=== PATIENT | female | born 1975 | race Caucasian/White ===

== ENCOUNTER → 2017-07-04 12:08 | Outpatient (CLI) | payer MEDICAID ==
[2011-12-05 08:38] VITALS: BMI 40.0
== END | disposition home or self-care (01) ==
LOC: D.CT 12:08
DX: R10.31 Right lower quadrant pain (principal)

== ENCOUNTER 2017-07-26 01:32 | Emergency (ER) | payer MEDICAID ==
[2011-12-05 08:38] VITALS: BMI 40.0
== END 2017-07-26 02:39 | disposition home or self-care (01) ==
LOC: D.ER 01:32
DX: L02.416 Cutaneous abscess of left lower limb (principal); F17.200 Nicotine dependence, unspecified, uncomplicated

== ENCOUNTER 2017-09-09 23:12 | Emergency (ER) | payer MEDICAID ==
[2011-12-05 08:38] VITALS: BMI 40.0
== END 2017-09-10 01:20 | disposition home or self-care (01) ==
LOC: D.ER 23:12
DX: M54.5 Low back pain (principal); W10.9XXA Fall (on) (from) unspecified stairs and steps, initial encounter; Y93.89 Activity, other specified; Y92.019 Unspecified place in single-family (private) house as the place of occurrence of the external cause

== ENCOUNTER 2017-11-13 22:22 | Emergency (ER) | payer MEDICAID ==
[~2017-11-13] VITALS: Ht 165.1 cm; Wt 90.9 kg
[2017-11-13 22:29] VITALS: Ht 165.1 cm; Wt 90.9 kg
[2017-11-13] MEDS ORDERED: LEVEMIR100 U/M1 SC (22:30)
[2017-11-13] MEDS ORDERED: KLONOPIN1 MG PO (22:30)
[2017-11-13 22:47] LABS: APPEARANCE CLEAR (CLEAR); COLOR YELLOW (YELLOW); NITRITE NEGATIVE (NEGATIVE)
[2017-11-13 22:48] LABS: BILIRUBIN NEGATIVE (NEGATIVE); GLUCOSE 1000 mg/dL (NEGATIVE); KETONE NEGATIVE (NEGATIVE); PROTEIN NEGATIVE (NEGATIVE); UROBILINOGEN NORMAL (NORMAL)
[2017-11-13 23:12] LABS: BASOPHILS 0.4 % (0-2); EOSINOPHILS 2.7 % (0-7); HEMATOCRIT 40.3 % (36.0-48.0); HEMOGLOBIN 13.7 g/dL (12-16); IMMATURE GRANULOCYTES 0.2 % (0-5); MCH 28.7 pg (26.0-34.0); MCV 84.3 fL (80.0-100.0); MEAN PLATELET VOLUME 10.6 fL (7.4-10.4); MONOCYTES 5.6 % (2-11); NEUTROPHILS 58.1 % (40-80); PLATELET COUNT 277 10x3/uL (130-400); RBC 4.78 10x6/uL (4.00-5.40); RDW 14.1 % (11.5-14.5); WBC 10.6 10x3/uL (4.8-10.8)
[2017-11-13 23:34] LABS: ALBUMIN 3.1 g/dL (3.4-5.0); ALKALINE PHOSPHATASE 84 U/L (46-116); ALT (SGPT) 13 U/L (10-68); AMYLASE - SERUM 57 U/L (25-115); BILIRUBIN - TOTAL 0.11 mg/dL (0.2-1.3); CALC OSMOLALITY 273 mosm/kg (275-300); CALCIUM 8.5 mg/dL (8.5-10.1); CARBON DIOXIDE 29.6 mmol/L (21.0-32.0); CHLORIDE - SERUM 101 mmol/L (98-107); CREATININE - SERUM 0.8 mg/dL (0.6-1.3); LIPASE 173 U/L (73-393); POTASSIUM - SERUM 3.9 mmol/L (3.5-5.1); SODIUM 134 mmol/L (136-145); UREA NITROGEN 8 mg/dL (7-18); eGFR NON AFRICAN AMERICAN 84 mL/min (90-120)
[2017-11-13 23:38] LABS: GLUCOSE 239 mg/dL (74-106)
[2017-11-14] MEDS ORDERED: NORCO 7.5/325 T1 TA1 PO (00:29)
[2017-11-14 00:55] VITALS: BP 150/97
== END 2017-11-14 00:55 | disposition home or self-care (01) ==
LOC: D.ER 22:22
PROVIDERS: Emergency Medicine
DX: R10.9 Unspecified abdominal pain (principal); E10.9 Type 1 diabetes mellitus without complications; Z79.4 Long term (current) use of insulin; F17.200 Nicotine dependence, unspecified, uncomplicated

== ENCOUNTER 2017-11-27 07:30 | Day surgery (SDC) | payer MEDICAID ==
[~2017-11-27] VITALS: Ht 165.1 cm; Wt 114.3 kg
--- NOTE | ~2017-11-27 | OP ---
PATIENT NAME: PARK ZAMBRANO MEDICAL RECORD: [id number] :77 [facility] DATE: SURGEON: JYOTHI DONG MD DATE OF OPERATION: 11/27/2017 PREOPERATIVE DIAGNOSIS: Symptomatic right inguinal hernia. POSTOPERATIVE DIAGNOSIS: Symptomatic indirect right inguinal hernia. PROCEDURE: Open right indirect inguinal hernia repair with bilayered preperitoneal polypropylene mesh. SURGEON: Jyothi Dong MD DRUM PULLER: NATE Buckley BLOOD LOSS: Minimal. DRAINS: None. COMPLICATIONS: None. The risks, possible complications and alternatives to procedure were explained to the patient. She elects to proceed. The discussion was specifically included, but was not limited to, bleeding requiring emergency reoperation, infection, chronic pain as well as reherniation. OPERATIVE COURSE: The patient was conveyed to the operating room electively on 11/27/2017. General anesthesia was induced by the anesthesia staff. The abdomen and genitals were sterilely prepped and draped. A transverse incision was accomplished in the right groin. Sharp dissection was carried down through skin and subcutaneous tissue as well as Robert's fascia. The external oblique aponeurosis was then incised along the direction of its fibers. I bluntly dissected down through the internal oblique and transversus abdominis muscle layers. A preperitoneal pocket was fashioned bluntly. The round ligament was cauterized and divided. I cut 2 ovals out of a polypropylene mesh. The 2 ovals were sutured one on top, the other with a running #1 Surgidac. The mesh was placed in the preperitoneal space. Once I was satisfied with placement of the mesh, I allowed the muscle layers to come together over the mesh. The internal oblique and transversus abdominis muscle layers were then sutured together with multiple interrupted horizontal mattress 0 Surgidac incorporating a portion of the mesh in the sutures. The external oblique aponeurosis was then closed with running #1 Vicryls. Robert's fascia was approximated with interrupted 3-0 Vicryls. The subcutaneous tissues were approximated with interrupted 3-0 Vicryls. The skin was approximated with a running intracuticular 3-0 Vicryl. Benzoin and Steri-Strips were applied. The patient was then extubated and conveyed to the post-anesthesia care unit where she was in stable condition. She will be dismissed home on a narcotic analgesic. I will see her in the office in 2-3 weeks. TRANSINT:[id number] Voice Confirmation ID: [id number] DOCUMENT ID: [id number] OPERATIVE REPORT [id number] PARK ZAMBRANO ROBERT MD at 1004 CC: [id number] DICTATION DATE: 12/28/17 1017 PROFESSIONAL HOUSING CONSULTANT: 12/28/17 1328 [facility] 11/27/[address] [address]
[~2017-11-27 07:30] MED LIST: KLONOPIN1 MG PO; LEVEMIR100 U/M1 SC; NORCO 7.5/325 T1 TA1 PO
[2017-11-27 07:57] LABS: HEMATOCRIT 43.3 % (36.0-48.0); HEMOGLOBIN 14.9 g/dL (12-16); MCHC 34.4 g/dL (31.0-37.0); MCV 84.2 fL (80.0-100.0); MEAN PLATELET VOLUME 10.6 fL (7.4-10.4); RBC 5.14 10x6/uL (4.00-5.40); RDW 14.1 % (11.5-14.5); WBC 13.8 10x3/uL (4.8-10.8)
[2017-11-27 07:59] LABS: CALC OSMOLALITY 276 mosm/kg (275-300); CALCIUM 8.8 mg/dL (8.5-10.1); CARBON DIOXIDE 27.6 mmol/L (21.0-32.0); CHLORIDE - SERUM 102 mmol/L (98-107); CREATININE - SERUM 0.7 mg/dL (0.6-1.3); GLUCOSE 258 mg/dL (74-106); POTASSIUM - SERUM 4.2 mmol/L (3.5-5.1); SODIUM 135 mmol/L (136-145); UREA NITROGEN 8 mg/dL (7-18); eGFR NON AFRICAN AMERICAN > 90 mL/min (90-120)
[2017-11-27 09:02] VITALS: BP 111/68; Ht 165.1 cm; Wt 114.3 kg
== END 2017-11-27 16:10 | disposition home or self-care (01) ==
LOC: D.OPS 07:30 → D.PAN 09:00 → D.OPS 10:30
PROVIDERS: Anesthesiology
DX: K40.90 Unilateral inguinal hernia, without obstruction or gangrene, not specified as recurrent (principal); Z01.812 Encounter for preprocedural laboratory examination

== ENCOUNTER 2017-12-02 09:59 | Emergency (ER) | payer MEDICAID ==
[~2017-12-02] VITALS: Ht 165.1 cm; Wt 90.9 kg
[2017-12-02 10:23] VITALS: Ht 165.1 cm; Wt 90.9 kg
[2017-12-02] MEDS ORDERED: NORCO 7.5/325 T1 TA1 PO (10:24)
[2017-12-02 10:53] LABS: BASOPHILS 0.3 % (0-2); EOSINOPHILS 3.3 % (0-7); HEMATOCRIT 40.2 % (36.0-48.0); HEMOGLOBIN 13.5 g/dL (12-16); IMMATURE GRANULOCYTES 0.3 % (0-5); LYMPHOCYTES 19.3 % (15-50); MCH 28.7 pg (26.0-34.0); MCHC 33.6 g/dL (31.0-37.0); MCV 85.4 fL (80.0-100.0); MEAN PLATELET VOLUME 10.7 fL (7.4-10.4); MONOCYTES 6.7 % (2-11); NEUTROPHILS 70.1 % (40-80); PLATELET COUNT 274 10x3/uL (130-400); RBC 4.71 10x6/uL (4.00-5.40); RDW 13.7 % (11.5-14.5); WBC 11.2 10x3/uL (4.8-10.8)
[2017-12-02 11:17] LABS: ALBUMIN 2.7 g/dL (3.4-5.0); ALKALINE PHOSPHATASE 92 U/L (46-116); ALT (SGPT) 15 U/L (10-68); BILIRUBIN - TOTAL 0.17 mg/dL (0.2-1.3); CALC OSMOLALITY 282 mosm/kg (275-300); CALCIUM 8.8 mg/dL (8.5-10.1); CARBON DIOXIDE 30.1 mmol/L (21.0-32.0); CHLORIDE - SERUM 101 mmol/L (98-107); CREATININE - SERUM 0.7 mg/dL (0.6-1.3); PROTEIN - SERUM 6.8 g/dL (6.4-8.2); SODIUM 137 mmol/L (136-145); UREA NITROGEN 5 mg/dL (7-18); eGFR NON AFRICAN AMERICAN > 90 mL/min (90-120)
[2017-12-02 11:19] LABS: GLUCOSE 317 mg/dL (74-106)
[2017-12-02 12:00] LABS: APPEARANCE CLOUDY (CLEAR); BACTERIA FEW /hpf (NONE SEEN); BILIRUBIN NEGATIVE (NEGATIVE); COLOR DK YELLOW (YELLOW); EPITHELIAL CELLS 0-5 /hpf (0-5); GLUCOSE 250 mg/dL (NEGATIVE); GRANULAR CAST OCC /lpf (NONE SEEN); KETONE NEGATIVE (NEGATIVE); MUCUS <1+ /lpf (NONE SEEN); NITRITE NEGATIVE (NEGATIVE); PROTEIN 1+ mg/dL (NEGATIVE); RED CELLS - URINE >50 /hpf (0-5); SPECIFIC GRAVITY 1.025 (1.005-1.020); UROBILINOGEN NORMAL (NORMAL)
[2017-12-02] MEDS ORDERED: ENULOSE10 G/15 ML PO (12:33)
[2017-12-02 12:48] VITALS: BP 116/78
== END 2017-12-02 12:51 | disposition home or self-care (01) ==
LOC: D.ER 09:59
PROVIDERS: Family Medicine
DX: K59.00 Constipation, unspecified (principal); G89.18 Other acute postprocedural pain; E11.9 Type 2 diabetes mellitus without complications; F17.200 Nicotine dependence, unspecified, uncomplicated

== ENCOUNTER 2017-12-20 18:56 | Emergency (ER) | payer MEDICAID ==
[~2017-12-20] VITALS: Ht 165.1 cm; Wt 92.7 kg
[~2017-12-20 18:56] MED LIST changes: +ENULOSE10 G/15 ML PO
[2017-12-20 19:26] VITALS: BP 141/80; Ht 165.1 cm; Wt 92.7 kg
[2017-12-20 20:03] LABS: BASOPHILS 0.5 % (0-2); EOSINOPHILS 4.8 % (0-7); HEMATOCRIT 37.3 % (36.0-48.0); HEMOGLOBIN 12.5 g/dL (12-16); IMMATURE GRANULOCYTES 0.4 % (0-5); LYMPHOCYTES 33.3 % (15-50); MCH 28.1 pg (26.0-34.0); MCHC 33.5 g/dL (31.0-37.0); MCV 83.8 fL (80.0-100.0); MEAN PLATELET VOLUME 10.2 fL (7.4-10.4); MONOCYTES 6.3 % (2-11); NEUTROPHILS 54.7 % (40-80); PLATELET COUNT 274 10x3/uL (130-400); RBC 4.45 10x6/uL (4.00-5.40); RDW 13.5 % (11.5-14.5); WBC 9.6 10x3/uL (4.8-10.8)
[2017-12-20 20:11] LABS: APPEARANCE CLEAR (CLEAR); BACTERIA MODERATE /hpf (NONE SEEN); BILIRUBIN NEGATIVE (NEGATIVE); COLOR YELLOW (YELLOW); EPITHELIAL CELLS 0-5 /hpf (0-5); GLUCOSE 100 mg/dL (NEGATIVE); KETONE NEGATIVE (NEGATIVE); NITRITE NEGATIVE (NEGATIVE); PROTEIN NEGATIVE (NEGATIVE); RED CELLS - URINE OCC /hpf (0-5); SPECIFIC GRAVITY 1.025 (1.005-1.020); UROBILINOGEN NORMAL (NORMAL); WHITE CELLS - URINE 0-5 /hpf (0-5)
[2017-12-20 20:27] LABS: ALBUMIN 2.7 g/dL (3.4-5.0); ALKALINE PHOSPHATASE 91 U/L (46-116); ALT (SGPT) 20 U/L (10-68); BILIRUBIN - TOTAL 0.09 mg/dL (0.2-1.3); CALC OSMOLALITY 280 mosm/kg (275-300); CALCIUM 8.7 mg/dL (8.5-10.1); CARBON DIOXIDE 28.7 mmol/L (21.0-32.0); CHLORIDE - SERUM 104 mmol/L (98-107); CREATININE - SERUM 0.7 mg/dL (0.6-1.3); POTASSIUM - SERUM 3.6 mmol/L (3.5-5.1); PROTEIN - SERUM 6.7 g/dL (6.4-8.2); SODIUM 139 mmol/L (136-145); UREA NITROGEN 6 mg/dL (7-18); eGFR NON AFRICAN AMERICAN > 90 mL/min (90-120)
[2017-12-20 20:28] LABS: GLUCOSE 190 mg/dL (74-106)
== END 2017-12-20 20:26 | disposition home or self-care (01) ==
LOC: D.ER 18:56
PROVIDERS: Emergency Medicine
DX: G89.18 Other acute postprocedural pain (principal); E11.9 Type 2 diabetes mellitus without complications; F17.200 Nicotine dependence, unspecified, uncomplicated

== ENCOUNTER 2018-01-21 19:22 | Emergency (ER) | payer MEDICAID ==
[~2018-01-21] VITALS: Ht 165.1 cm; Wt 90.9 kg
[2018-01-21 19:32] VITALS: Ht 165.1 cm; Wt 90.9 kg
[2018-01-21 21:26] LABS: BASOPHILS 0.4 % (0-2); EOSINOPHILS 2.5 % (0-7); HEMATOCRIT 37.2 % (36.0-48.0); HEMOGLOBIN 12.6 g/dL (12-16); IMMATURE GRANULOCYTES 0.6 % (0-5); LYMPHOCYTES 27.9 % (15-50); MCH 28.2 pg (26.0-34.0); MCHC 33.9 g/dL (31.0-37.0); MCV 83.2 fL (80.0-100.0); MEAN PLATELET VOLUME 10.4 fL (7.4-10.4); MONOCYTES 6.2 % (2-11); NEUTROPHILS 62.4 % (40-80); PLATELET COUNT 281 10x3/uL (130-400); RBC 4.47 10x6/uL (4.00-5.40); RDW 14.4 % (11.5-14.5); WBC 12.2 10x3/uL (4.8-10.8)
[2018-01-21 22:17] LABS: ALKALINE PHOSPHATASE 84 U/L (46-116); ALT (SGPT) 18 U/L (10-68); C-REACTIVE PROTEIN 1.4 mg/dL (0.0-0.9); CALC OSMOLALITY 283 mosm/kg (275-300); CALCIUM 8.6 mg/dL (8.5-10.1); CARBON DIOXIDE 26.9 mmol/L (21.0-32.0); CHLORIDE - SERUM 101 mmol/L (98-107); CREATININE - SERUM 0.7 mg/dL (0.6-1.3); GLUCOSE 234 mg/dL (74-106); POTASSIUM - SERUM 3.8 mmol/L (3.5-5.1); SODIUM 139 mmol/L (136-145); UREA NITROGEN 7 mg/dL (7-18); eGFR NON AFRICAN AMERICAN > 90 mL/min (90-120)
[2018-01-21 22:27] LABS: INR 0.96 (0.85-1.17); PROTIME 12.4 SECONDS (11.6-15.0)
[2018-01-22] MEDS ORDERED: XARELTO15 MG PO (00:50)
[2018-01-22 01:00] VITALS: BP 135/83
== END 2018-01-22 01:00 | disposition home or self-care (01) ==
LOC: D.ER 19:22
PROVIDERS: Family Medicine
DX: I82.402 Acute embolism and thrombosis of unspecified deep veins of left lower extremity (principal)

== ENCOUNTER 2018-01-30 23:14 | Emergency (ER) | payer MEDICAID ==
[~2018-01-30] VITALS: Ht 165.1 cm; Wt 81.8 kg
[~2018-01-30 23:14] MED LIST changes: +XARELTO15 MG PO
[2018-01-30 23:22] VITALS: Ht 165.1 cm; Wt 81.8 kg
[2018-01-31] MEDS ORDERED: NORCO 7.5/325 T1 TA1 PO (00:04)
[2018-01-31 00:23] VITALS: BP 122/90
== END 2018-01-31 00:23 | disposition home or self-care (01) ==
LOC: D.ER 23:14
DX: R10.9 Unspecified abdominal pain (principal); E11.9 Type 2 diabetes mellitus without complications; Z86.718 Personal history of other venous thrombosis and embolism; Z79.01 Long term (current) use of anticoagulants; F17.200 Nicotine dependence, unspecified, uncomplicated

== ENCOUNTER 2018-07-25 19:00 | Outpatient (CLI) | payer MEDICAID | END 2018-07-25 23:59 | disposition home or self-care (01) | LOC: D.MAMMO 19:00 | PROVIDERS: ATTEND Nurse Practitioner Family | DX: Z12.31 Encounter for screening mammogram for malignant neoplasm of breast (principal) ==

== ENCOUNTER 2018-08-16 15:28 | Emergency (ER) | payer MEDICAID ==
[2018-08-16 15:52] LABS: BASOPHILS 0.3 % (0-2); EOSINOPHILS 3.4 % (0-7); HEMATOCRIT 42.3 % (36.0-48.0); HEMOGLOBIN 14.4 g/dL (12-16); IMMATURE GRANULOCYTES 0.4 % (0-5); LYMPHOCYTES 21.9 % (15-50); MCH 28.5 pg (26.0-34.0); MCV 83.8 fL (80.0-100.0); MEAN PLATELET VOLUME 10.7 fL (7.4-10.4); PLATELET COUNT 315 10x3/uL (130-400); RBC 5.05 10x6/uL (4.00-5.40); RDW 14.6 % (11.5-14.5); WBC 13.3 10x3/uL (4.8-10.8)
[2018-08-16 16:00] LABS: APTT 25.9 SECONDS (22.8-39.4); INR 0.98 (0.85-1.17); PROTIME 12.5 SECONDS (11.6-15.0)
[2018-08-16 16:01] LABS: D-DIMER-QUANTITATIVE < 0.27 ug/mLFEU (0.20-0.54)
[2018-08-16 16:07] LABS: ALBUMIN 3.2 g/dL (3.4-5.0); ALKALINE PHOSPHATASE 74 U/L (46-116); ALT (SGPT) 18 U/L (10-68); BILIRUBIN - TOTAL 0.16 mg/dL (0.2-1.3); CALC OSMOLALITY 279 mosm/kg (275-300); CALCIUM 8.4 mg/dL (8.5-10.1); CHLORIDE - SERUM 105 mmol/L (98-107); CREATININE - SERUM 0.5 mg/dL (0.6-1.3); GLUCOSE 201 mg/dL (74-106); POTASSIUM - SERUM 3.6 mmol/L (3.5-5.1); PROTEIN - SERUM 7.4 g/dL (6.4-8.2); SODIUM 138 mmol/L (136-145); UREA NITROGEN 7 mg/dL (7-18); eGFR NON AFRICAN AMERICAN > 90 mL/min (90-120)
[2018-08-16 18:29] LABS: APPEARANCE CLEAR (CLEAR); BILIRUBIN NEGATIVE (NEGATIVE); COLOR YELLOW (YELLOW); GLUCOSE 1000 mg/dL (NEGATIVE); KETONE NEGATIVE (NEGATIVE); NITRITE NEGATIVE (NEGATIVE); PROTEIN NEGATIVE (NEGATIVE); UROBILINOGEN NORMAL (NORMAL)
[2018-08-16 18:30] LABS: HCG URINE NEGATIVE (NEGATIVE)
== END 2018-08-16 19:47 | disposition home or self-care (01) ==
LOC: D.ER 15:28
PROVIDERS: Emergency Medicine
DX: R22.42 Localized swelling, mass and lump, left lower limb (principal); Z86.718 Personal history of other venous thrombosis and embolism; Z79.01 Long term (current) use of anticoagulants

== ENCOUNTER → 2018-08-27 15:45 | Outpatient (CLI) | payer MEDICAID ==
[2018-08-16 15:33] VITALS: BMI 33.3
== END | disposition home or self-care (01) ==
LOC: D.MAMMO 10:00
PROVIDERS: ATTEND Nurse Practitioner Family
DX: R92.8 Other abnormal and inconclusive findings on diagnostic imaging of breast (principal)

== ENCOUNTER 2018-11-27 18:31 | Emergency (ER) | payer MEDICAID ==
[~2018-11-27] VITALS: Ht 165.1 cm; Wt 90.9 kg
[2018-11-27 18:44] VITALS: BP 127/87; Ht 165.1 cm; Wt 90.9 kg
[2018-11-28] MEDS ORDERED: CLEOCIN HCL300 MG PO (01:50)
[2018-11-28] MEDS ORDERED: KEFLEX500 MG PO (01:50)
== END 2018-11-27 21:35 | disposition left against medical advice (07) ==
LOC: D.ER 18:31
DX: L02.416 Cutaneous abscess of left lower limb (principal)

== ENCOUNTER 2018-11-27 23:33 | Emergency (ER) | payer MEDICAID ==
[~2018-11-27] VITALS: Ht 165.1 cm; Wt 90.9 kg
[2018-11-27 23:36] VITALS: Ht 165.1 cm; Wt 90.9 kg
[2018-11-28] MEDS ORDERED: KEFLEX500 MG PO (01:50)
[2018-11-28] MEDS ORDERED: CLEOCIN HCL300 MG PO (01:50)
[2018-11-28 02:13] VITALS: BP 122/84
== END 2018-11-28 02:04 | disposition home or self-care (01) ==
LOC: D.ER 23:33
DX: L02.214 Cutaneous abscess of groin (principal)

== ENCOUNTER 2019-03-10 11:50 | Day surgery (SDC) | payer MEDICAID ==
[~2019-03-10] VITALS: Ht 165.1 cm; Wt 88.5 kg
[~2019-03-10 11:50] MED LIST changes: +CLEOCIN HCL300 MG PO; +KEFLEX500 MG PO; +LEVEMIR FL100 UNIT/1 SC; -LEVEMIR100 U/M1 SC
[2019-03-10 12:28] LABS: CALC OSMOLALITY 279 mosm/kg (275-300); CARBON DIOXIDE 28.2 mmol/L (21.0-32.0); CHLORIDE - SERUM 104 mmol/L (98-107); CREATININE - SERUM 0.5 mg/dL (0.6-1.3); SODIUM 141 mmol/L (136-145); UREA NITROGEN 7 mg/dL (7-18); eGFR NON AFRICAN AMERICAN > 90 mL/min (90-120)
[2019-03-10 12:29] LABS: GLUCOSE 110 mg/dL (74-106)
[2019-03-10] MEDS ORDERED: DIFLUCAN150 MG PO (12:39)
[2019-03-10 12:50] VITALS: BP 115/76; Ht 165.1 cm; Wt 88.5 kg
[2019-03-10 13:47] LABS: HEMATOCRIT 45.3 % (36.0-48.0); HEMOGLOBIN 15.2 g/dL (12-16); MCH 29.2 pg (26.0-34.0); MCHC 33.6 g/dL (31.0-37.0); MCV 87.1 fL (80.0-100.0); MEAN PLATELET VOLUME 11.7 fL (7.4-10.4); RBC 5.2 10x6/uL (4.00-5.40); RDW 13.9 % (11.5-14.5); WBC 12.8 10x3/uL (4.8-10.8)
[2019-03-10] MEDS ORDERED: PERCOCET 5-3251 TAB PO (14:23)
--- NOTE | 2019-03-10 19:12 | NUR ---
1550 PT ARRIVED TO ROOM CRYING. DENIES PAIN AND DOESNT KNOW WHY SHE IS CRYING. INFORMED PT IT COULD BE THE ANESTHESIA. LEFT LEG ELEVATED ON PILLOW AND ICE PACK APPLIED. PALP PULSE AND FEET WARM TO TOUCH. WIGGLES ALL DIGITS. 1610 RECIEVED SOME ICE CREAM AND CRACKERS. DENIES PAIN. 1630 INSTRUCTIONS GIVEN, IV REMOVED 1700 PT WAS IN W/C SHE REQUESTED SOMETHING FOR PAIN BUT DIDNT WANT TO WAIT 30MIN. INSTRUCTED PT SHE WOULD HAVE TO STAY 30MIN AFTER PO MEDICATION GIVEN. PT REFUSED. PT HAS A RX TO FILL.
--- NOTE | 2019-03-11 07:35 | OP ---
PATIENT NAME: PARK SCOTT MEDICAL RECORD: [id number] :77 LOCATION:[facility] ADMISSION DATE: SURGEON: GARY ORDOÑEZ DO DATE OF OPERATION: 03/10/2019 PROCEDURES PERFORMED: Left knee arthroscopy with abrasion chondroplasty of the patella, medial femoral condyle and partial medial and partial lateral meniscectomies. PREOPERATIVE DIAGNOSIS: Left knee loose body. POSTOPERATIVE DIAGNOSES: Grade III chondromalacia of the medial femoral condyle, the patella, and medial and lateral meniscal tears. INDICATIONS: Ms. Scott is a 43-year-old female who has had loose body in her knee for quite some time. She had an MRI done, which showed loose body approximately 8 mm in the knee and it had been in for quite a while. It came likely from the patella, she had a large hole in the cartilage or an OCD lesion defect in the cartilage of the medial patellar facet on the MRI. I informed her that we go in and get that piece out. It should be in there, but it maybe would have dissolved. She is having continued pain and locking, catching and popping and she is aware of the risks including infection, bleeding, damage to nerves and vessels, need for further surgery, continued knee pain and blood clots, and even and she signed the consent. SURGEON: Gary Ordoñez DO DESCRIPTION OF PROCEDURE: The patient was taken to the operative suite, laid in the supine position, given general anesthetic and LMA was placed. The left lower extremity was then prepped and draped in sterile fashion. A timeout was performed and everyone was in agreement with the correct side, site, patient and procedure. Once that was done, the incision began over the lateral portal on the anterior knee. Trocar was then entered in the suprapatellar pouch. The chondromalacia was seen on the patella medially. There were no loose bodies seen in the suprapatellar pouch, lateral gutter, medial gutter. The medial aspect of the knee was then entered and the knee was flexed. The medial portal was established with an 18-gauge spinal needle and #11-blade scalpel. A probe was brought in and there was grade III chondromalacia on the medial femoral condyle at the weightbearing portion with the knee in extension, the cartilage was trimmed back and it was loose there. The knee was then probed with a shaver. The probe was then put back in the knee. There was a small tear on the menisci in the medial part. The scope was then put in, the notch looking for a loose body in the posterior portion. There were no loose body seen there. The lateral compartment was then entered and there was a small tear on the root of the posterior horn of the lateral meniscus. This was trimmed back to a stable point. It was stable and did not flip in and out. There was still attachment to the root of the meniscus. The patella was then addressed and the abrasion chondroplasty was done on that, same was done on the medial femoral condyle. Loose body was then looked for in the soft tissues of the anterior knee was not found. At that point, we looked back up in the suprapatellar pouch and did not see there either. The scope water was turned off and suction turned on. Excess fluid was taken out of the knee, portal sites were closed with 4-0 Monocryl in inverted interrupted fashion. Steri-Strips were then placed on that. Adaptic, OPERATIVE REPORT [id number] PARK SCOTT 4 x 4s, ABD, Webril, Elijah wrap were placed on the knee and JAM hose stocking up to the knee. She was then awakened and taken to the recovery in stable condition. BLOOD LOSS: Minimal. COMPLICATIONS: None. TRANSINT:[id number] Voice Confirmation ID: [id number] DOCUMENT ID: [id number] GARY ORDOÑEZ DO at 0735 CC: [id number] DICTATION DATE: 03/10/19 155 AMMUNITION COMPONENTS INSPECTOR: 03/11/[address] [facility] [place] [place] 03/10/[address] [address]
== END 2019-03-10 17:00 | disposition home or self-care (01) ==
LOC: D.OPS 11:50 → D.PAN 14:05 → D.OPS 14:15 → D.PAN 15:15 → D.OPS 15:15
PROVIDERS: Anesthesiology; ATTEND Orthopaedic Surgery
DX: M22.42 Chondromalacia patellae, left knee (principal); S83.282A Other tear of lateral meniscus, current injury, left knee, initial encounter; S83.242A Other tear of medial meniscus, current injury, left knee, initial encounter; X58.XXXA Exposure to other specified factors, initial encounter

== ENCOUNTER 2019-03-18 11:18 | Emergency (ER) | payer MEDICAID ==
[~2019-03-18] VITALS: Ht 165.1 cm; Wt 86.4 kg
[~2019-03-18 11:18] MED LIST changes: +DIFLUCAN150 MG PO; +PERCOCET 5-3251 TAB PO
[2019-03-18 11:33] VITALS: Ht 165.1 cm; Wt 86.4 kg
[2019-03-18 12:01] LABS: BASOPHILS 0.3 % (0-2); EOSINOPHILS 5.4 % (0-7); HEMATOCRIT 39.4 % (36.0-48.0); HEMOGLOBIN 12.8 g/dL (12-16); IMMATURE GRANULOCYTES 0.5 % (0-5); LYMPHOCYTES 27.1 % (15-50); MCH 28.5 pg (26.0-34.0); MCHC 32.5 g/dL (31.0-37.0); MCV 87.8 fL (80.0-100.0); MEAN PLATELET VOLUME 10.7 fL (7.4-10.4); MONOCYTES 6.5 % (2-11); NEUTROPHILS 60.2 % (40-80); PLATELET COUNT 294 10x3/uL (130-400); RBC 4.49 10x6/uL (4.00-5.40)
[2019-03-18 12:12] LABS: CALC OSMOLALITY 283 mosm/kg (275-300); CALCIUM 8.5 mg/dL (8.5-10.1); CARBON DIOXIDE 29.8 mmol/L (21.0-32.0); CHLORIDE - SERUM 101 mmol/L (98-107); CREATININE - SERUM 0.6 mg/dL (0.6-1.3); GLUCOSE 281 mg/dL (74-106); SODIUM 138 mmol/L (136-145); UREA NITROGEN 8 mg/dL (7-18); eGFR NON AFRICAN AMERICAN > 90 mL/min (90-120)
[2019-03-18 12:16] LABS: ALBUMIN 2.9 g/dL (3.4-5.0); ALKALINE PHOSPHATASE 79 U/L (46-116); ALT (SGPT) 18 U/L (10-68); BILIRUBIN - TOTAL 0.18 mg/dL (0.2-1.3); PROTEIN - SERUM 6.5 g/dL (6.4-8.2)
[2019-03-18 12:25] LABS: APTT 26.4 SECONDS (22.8-39.4); INR 0.93 (0.85-1.17); PROTIME 11.9 SECONDS (11.6-15.0)
[2019-03-18 13:55] VITALS: BP 125/74
== END 2019-03-18 13:56 | disposition home or self-care (01) ==
LOC: D.ER 11:18
PROVIDERS: Family Medicine
DX: M79.605 Pain in left leg (principal); R60.0 Localized edema; E11.9 Type 2 diabetes mellitus without complications; Z79.4 Long term (current) use of insulin; M54.32 Sciatica, left side; M54.31 Sciatica, right side; Z90.89 Acquired absence of other organs

== ENCOUNTER 2019-12-05 11:50 | Inpatient (IN) | payer MEDICAID ==
[~2019-12-05] VITALS: Ht 165.1 cm; Wt 81.8 kg
--- NOTE | ~2019-12-05 | HEMODYNAMI ---
PATIENT:PARK ZAMBRANO MEDICAL RECORD: [id number] : 77 LOCATION:[facility] ADMISSION DATE: 12/05/19 Generatedon:12/07/201911:43 Patient name: PARK ZAMBRANO Patient #: [id number] SSN: : [id number] Date of study: 12/07/2019 Page: Of Hemodynamic Procedure Report Patient Data Patient Demographics Procedure consent was obtained First Name: PARK Gender: Female Last Name: JUAN MANUEL : 1975 Middle Initial: D Age: 43 year(s) Patient #: [id number] Race: Unknown Additional ID: [id number] Contact details Address: [address] [place] [address] State: [place] City: [place] Zip code: [address] Past Medical History Allergies: No known allergies Admission Admission Data Admission Date: 12/05/2019 Admission Time: 12:58 Room #: D.2205 Weight (lbs.): 180 Weight (kg.): 81.65 Procedure Procedure Types Cath Procedure Peripheral Cath Diagnostic Procedure Head Banquet Waiter/Waitress Peripheral Procedures Venography Extremity Left Lower Ext. Venagram Procedure Description Procedure Date Procedure Date: 12/07/2019 Procedure Start Time: 11:18 Procedure Staff Name Function Ezequiel Couch MD Performing Physician Shilpi Moran RT Hot Shot Adama CAROLINA RN Nurse Owen Colindres RT Scrub Procedure Data Cath Procedure Fluoroscopy Diagnostic fluoroscopy Total fluoroscopy Time: 1.1 time: 1.1 min min Diagnostic fluoroscopy Total fluoroscopy dose: 302 dose: 302 mGy mGy Contrast Material Contrast Material Type Amount (ml) Isovue 300 75 Procedure Medications Medication Administration Route Dosage Heparin Flush Bag added to field 2 bags (1000units/500ml NS) Lidocaine 1% added to field 20 Fentanyl I.V. 50 mcg Versed I.V. 1 mg Fentanyl I.V. 25 mcg Versed I.V. 0.5 mg Fentanyl I.V. 25 mcg Versed I.V. 0.5 mg Fentanyl I.V. 50 mcg Versed I.V. 1 mg Fentanyl I.V. 50 mcg Versed I.V. 1 mg Hemodynamics Rest Heart Rate: 80 (bpm) Snapshots Pre Cath Intra NCS Post Cath Vital Signs Time Heart Resp SPO2 etCO2 NIBP (mmHg) Rhythm Pain Sedation Rate (ipm) (%) (mmHg) Status Level (bpm) 11:09:36 83 20 100 34.5 136/85(110) NSR 0 (11) 9(A) , No pain 11:13:50 77 16 36 138/84(113) NSR 0 (11) 9(A) , No pain 11:18:00 85 18 35.3 143/86(115) NSR 0 (11) 9(A) , No pain 11:22:16 84 16 36.8 133/78(96) NSR 0 (11) 9(A) , No pain 11:26:26 92 17 100 15.7 149/89(119) NSR 0 (11) 9(A) , No pain 11:30:40 95 16 100 23.2 140/97(109) NSR 0 (11) 9(A) , No pain 11:34:52 88 17 100 36.8 138/76(100) NSR 0 (11) 9(A) , No pain 11:39:06 94 11 99 33 119/89(107) NSR 0 (11) 9(A) , No pain Medications Time Medication Route Dose Verified Delivered Reason Notes Effe ctiveness by by 11:03:50 Heparin Flush added 2 Ezequiel Nieves used for Bag to bags Khoa Couch MD procedure (1000units/500ml field BRAN NS) 11:04:05 Lidocaine 1% added 20ml Ezequiel Nieves for local to vial Khoa Couch MD anesthetic field BRAN 11:18:53 Fentanyl I.V. 50 Ezequiel Galan for mcg Brandona, CAITY sedation RN 11:19:01 Versed I.V. 1 mg Ezequiel Galan for Burda, CAITY sedation RN 11:23:53 Fentanyl I.V. 25 Ezequiel Galan for mcg Brandona, CAITY sedation RN 11:23:58 Versed I.V. 0.5 Ezequiel Galan for mg Brandona, CAITY sedation RN 11:25:56 Fentanyl I.V. 25 Ezequiel Minner for mcg Burda, CAITY sedation MD TEJADA 11:26:05 Versed I.V. 0.5 Ezequiel Minner for mg Burda, CAITY sedation MD TEJADA 11:30:03 Fentanyl I.V. 50 Ezequiel Minner for mcg Burda, CAITY sedation MD TEJADA 11:30:09 Versed I.V. 1 mg Ezequiel Minner for Burda, CAITY sedation MD TEJADA 11:34:27 Fentanyl I.V. 50 Ezequiel Minner for mcg Burda, CAITY sedation MD TEJADA 11:34:31 Versed I.V. 1 mg Ezequiel Minner for Burda, CAITY sedation cupola mechanic Log Time Note 10:31:00 Patient Weight : 180 lbs 10:31:06 Use device set IR Diagnostic 10:48:00 DOC .035 wire (Y84254) opened to sterile field. 10:48:00 Micropuncture VSI 4FR kit opened to sterile field. 10:48:01 Tegaderm 4 x 4 (1626W) opened to sterile field. 10:48:02 Sterile Angiographic Pack opened to sterile field. 10:48:03 Bag Decanter (2002S) opened to sterile field. 10:48:10 - 10:48:14 Time tracking: Regular hours (M-F 7:00 - 5:00) 10:52:27 GLIDE CATHETER 5FR ANGLED 65cm (CG507) opened to sterile field. 10:52:36 Plan of Care:Hemodynamics will remain stable., Cardiac rhythm will remain stable., Comfort level will be maintained., Respiratory function will remain adequate., Patient/ family verbilizes understanding of procedure., Procedure tolerated without complication., Recovers from procedure without complications.. 10:53:22 Patient received from Med/Surg to IR Alert and oriented. Tansferred to table in Prone position. 10:53:27 Signed procedure consent form obtained from patient. 10:53:35 H&P Date Dictated: 12/07/2019 Within 30 days and on chart.. 10:53:37 Pre-procedure instructions explained to patient. 10:53:40 Family unavailable. 10:53:43 Patient NPO since Midnight. 10:53:52 Patient allergic to No known allergies 10:53:57 Is the patient allergic to Iodine/contrast media? No. 10:54:00 Is patient on blood thinner?Yes 10:54:08 ACC The patient was administered the following blood thiners within the last 24 hours: ACCLovenox 10:54:12 Patient diabetic? Yes. 10:54:15 If diabetic: On Metformin? No 10:54:16 - 10:54:19 ----Pre-sedation anethsthesia assessment.---- 10:54:21 Previous problem with sedation/anesthesia? No ? 10:54:25 Snore? Yes 10:54:27 Sleep apnea? No 10:54:38 Deviated septum? No 10:54:40 Opens mouth fully? Yes 10:54:42 Sticks out tongue? Yes 10:54:45 Airway obstruction? No ? 10:54:49 Dentures? No ? 10:54:51 - 10:55:04 Popliteal region area was prepped with chlora-prep and draped in salomeil e fashion 10:55:08 - 11:03:50 Heparin Flush Bag (1000units/500ml NS) 2 bags added to field was administered by Ezequiel Couch MD; used for procedure; Verbal order read back and verified. 11:04:05 Lidocaine 1% 20ml vial added to field was administered by Ezequiel Couch MD; for local anesthetic; Verbal order read back and verified. 11:08:33 Vital chart was started 11:08:36 Baseline sample Acquired. 11:16:47 Physician arrived 11:16:48 --------ALL STOP TIME OUT------ 11:16:49 Final Timeout: patient, procedure, and site verified with staff and physician. All members of the team are in agreement. 11:18:15 Fire Safety Assessment: A--An alcohol-based skin anteseptic being used preoperatively., C--Open oxygen or nitrous oxide is being used. 11:18:22 1) 90+ Normal kidney functon but urine findings or structural abnormalities or genetic trait point to kidney disease. 11:18:31 Procedure started. 11:18:31 Full Disclosure recording started 11:18:43 Local anesthetic to left popliteal vein with Lidocaine 1% by Ezequiel Couch MD.INITIAL ACCESS ONLY 11:18:53 Fentanyl 50 mcg I.V. was administered by Adama CAROLINA RN; for sedation; Verbal order read back and verified. 11:19:01 Versed 1 mg I.V. was administered by Adama CAROLINA RN; for sedation; Verbal order read back and verified. 11:23:53 Fentanyl 25 mcg I.V. was administered by Adama CAROLINA RN; for sedation; Verbal order read back and verified. 11:23:58 Versed 0.5 mg I.V. was administered by Adama CAROLINA RN; for sedation; Verbal order read back and verified. 11:25:56 Fentanyl 25 mcg I.V. was administered by Adama CAROLINA RN; for sedation; Verbal order read back and verified. 11:26:05 Versed 0.5 mg I.V. was administered by Adama CAROLINA RN; for sedation; Verbal order read back and verified. 11:30:03 Fentanyl 50 mcg I.V. was administered by Adama CAROLINA RN; for sedation; Verbal order read back and verified. 11:30:09 Versed 1 mg I.V. was administered by Adama CAROLINA RN; for sedation; Verbal order read back and verified. 11:31:57 SHEATH 6FR Brite Tip 35cm (162745P) opened to sterile field. 11:32:13 Cordis 5Fr [place] Destination sheath opened to sterile field. 11:34:27 Fentanyl 50 mcg I.V. was administered by Adama CAROLINA RN; for sedation; Verbal order read back and verified. 11:34:31 Versed 1 mg I.V. was administered by Adama CAROLINA RN; for sedation; Verbal order read back and verified. 11:39:24 Procedure ended.(Physican Out) 11:39:50 Fluoroscopy time 01.10 minutes. 11:39:55 Fluoroscopy dose: 302 mGy 11:39:55 Flurop Dose total: 302 11:40:01 Contrast amount:Isovue 300 75ml. 11:40:04 Procedure and supply charges have been captured, reviewed, submitted an d are correct. 11:43:17 Vital chart was stopped Device Usage Item Name Manufacture Quantity Catalog Hospital Part Current Minima l Lot# / Number Charge Number Stock Stock Serial# Code DOC .035 wire [employer] 1 [id number] 5 ([id number]) Micropuncture VSI VASCULAR 1 7266V 342863 448673 5 VSI 4FR kit SOLUTIONS Tegaderm 4 x 3M 1 1626W 774272 [id number] [id number] 5 4 (1626W) Sterile Cardinal 1 [id number] 206743 295215 5 Angiographic Health Pack Bag Decanter Microtek 1 2001S 160270 53782 027645 5 (2001S) Medical Inc. GLIDE Terumo 1 CG507 584512 547196 5 CATHETER 5FR ANGLED 65cm (CG507) SHEATH 6FR Cardinal 1 [id number] 146759 566672 562162 1 Brite Tip Health 35cm (654931H) Cordis 5Fr Cardinal 1 [id number] 528852 58664 577658 5 [place] Health Destination sheath Signature Audit Isle Stage Time Signature Unsigned Intra-Procedure 12/07/2019 Shilpi Moran 11:43:14 AM RT(R) [facility] [address] [place] [address]
--- NOTE | 2019-12-05 12:27 | NUR ---
US AT BEDSIDE
[2019-12-05 12:50] LABS: BASOPHILS 0.4 % (0-2); HEMATOCRIT 39.1 % (36.0-48.0); HEMOGLOBIN 12.6 g/dL (12-16); IMMATURE GRANULOCYTES 0.4 % (0-5); LYMPHOCYTES 18.6 % (15-50); MCH 27.6 pg (26.0-34.0); MCHC 32.2 g/dL (31.0-37.0); MCV 85.7 fL (80.0-100.0); MEAN PLATELET VOLUME 10.1 fL (7.4-10.4); MONOCYTES 4.5 % (2-11); NEUTROPHILS 70.1 % (40-80); PLATELET COUNT 335 10x3/uL (130-400); RBC 4.56 10x6/uL (4.00-5.40); RDW 14.5 % (11.5-14.5); WBC 11.1 10x3/uL (4.8-10.8)
[2019-12-05 13:02] LABS: CALC OSMOLALITY 286 mosm/kg (275-300); CARBON DIOXIDE 29.1 mmol/L (21.0-32.0); CHLORIDE - SERUM 102 mmol/L (98-107); CREATININE - SERUM 0.6 mg/dL (0.6-1.3); POTASSIUM - SERUM 3.7 mmol/L (3.5-5.1); SODIUM 137 mmol/L (136-145); UREA NITROGEN 6 mg/dL (7-18); eGFR NON AFRICAN AMERICAN > 90 mL/min (90-120)
[2019-12-05 13:04] LABS: GLUCOSE 372 mg/dL (74-106)
[2019-12-05 13:07] LABS: ALKALINE PHOSPHATASE 102 U/L (30-120); ALT (SGPT) 20 U/L (10-68); BILIRUBIN - TOTAL 0.31 mg/dL (0.2-1.3); PROTEIN - SERUM 7.1 g/dL (6.4-8.2)
[2019-12-05 13:29] LABS: APTT 28.2 SECONDS (22.8-39.4); INR 0.94 (0.85-1.17); PROTIME 12.6 SECONDS (11.6-15.0)
[2019-12-05 13:30] LABS: D-DIMER-QUANTITATIVE 0.36 ug/mLFEU (0.20-0.54)
[2019-12-05] MEDS ORDERED: XARELTO20 MG PO (13:44)
[2019-12-05 13:53] VITALS: BP 127/76
[2019-12-05 20:00] VITALS: BP 116/62
--- NOTE | 2019-12-05 20:28 | NUR ---
PATIENT COMPLAINS OF PAIN TO LLE NORCO GIVEN PER ORDERS. IV TO RIGHT HAND INTACT WITHOUT REDNESS OR EDEMA NOTED.. LLE WITH EDEMA NOTED TO CALF AND ANKLE AREA. CL IN REACH. FAMILY AT BEDSIDE.
--- NOTE | 2019-12-05 21:50 | NUR ---
PATIENT CRYING COMPLAINTS OF PAIN WORSE. 02/12 MORPHINE 4 MG GIVEN IV PER ORDERS.. CL IN REACH
[2019-12-06] VITALS: BP 120/68
[2019-12-06 04:00] VITALS: BP 118/72
[2019-12-06 07:10] LABS: BASOPHILS 0.6 % (0-2); EOSINOPHILS 6.8 % (0-7); HEMOGLOBIN 11.5 g/dL (12-16); IMMATURE GRANULOCYTES 0.4 % (0-5); LYMPHOCYTES 33.6 % (15-50); MCH 26.7 pg (26.0-34.0); MCHC 31.1 g/dL (31.0-37.0); MCV 85.8 fL (80.0-100.0); MEAN PLATELET VOLUME 10.6 fL (7.4-10.4); NEUTROPHILS 52.6 % (40-80); PLATELET COUNT 328 10x3/uL (130-400); RBC 4.31 10x6/uL (4.00-5.40); RDW 14.5 % (11.5-14.5); WBC 10.3 10x3/uL (4.8-10.8)
[2019-12-06 07:30] LABS: ALBUMIN 2.4 g/dL (3.4-5.0); ALKALINE PHOSPHATASE 80 U/L (30-120); ALT (SGPT) 15 U/L (10-68); BILIRUBIN - TOTAL 0.12 mg/dL (0.2-1.3); CALC OSMOLALITY 280 mosm/kg (275-300); CALCIUM 8.4 mg/dL (8.5-10.1); CARBON DIOXIDE 28.4 mmol/L (21.0-32.0); CHLORIDE - SERUM 105 mmol/L (98-107); CREATININE - SERUM 0.5 mg/dL (0.6-1.3); POTASSIUM - SERUM 3.9 mmol/L (3.5-5.1); PROTEIN - SERUM 5.8 g/dL (6.4-8.2); SODIUM 139 mmol/L (136-145); UREA NITROGEN 5 mg/dL (7-18); eGFR NON AFRICAN AMERICAN > 90 mL/min (90-120)
[2019-12-06 07:31] LABS: GLUCOSE 213 mg/dL (74-106)
[2019-12-06 09:07] VITALS: BP 111/72
[2019-12-06 10:58] VITALS: Ht 165.1 cm; Wt 81.8 kg
[2019-12-06 13:48] VITALS: BP 127/56
--- NOTE | 2019-12-06 15:46 | NUR ---
PT ALERT X 4. LEFT LOWER LEG SWOLLEN. PAIN NOT VERY WELL CONTROLLED WITH MEDICATION. WILL CONTINUE TO MONITOR. BED LOW, CALL LIGHT IN REACH. NO OTHER NEEDS AT THIS TIME.
[2019-12-06 17:03] VITALS: BP 121/76
[2019-12-06 20:00] VITALS: BP 147/67
[2019-12-07] VITALS: BP 139/70
--- NOTE | 2019-12-07 02:09 | NUR ---
I have reviewed this patient and I concur with the Shift Assessment completed by the Licensed Practical Nurse today this shift.
[2019-12-07 07:27] LABS: BASOPHILS 0.3 % (0-2); EOSINOPHILS 4.6 % (0-7); HEMATOCRIT 36.3 % (36.0-48.0); HEMOGLOBIN 11.3 g/dL (12-16); IMMATURE GRANULOCYTES 0.3 % (0-5); LYMPHOCYTES 27.7 % (15-50); MCH 26.5 pg (26.0-34.0); MCHC 31.1 g/dL (31.0-37.0); MEAN PLATELET VOLUME 10.2 fL (7.4-10.4); MONOCYTES 5.4 % (2-11); NEUTROPHILS 61.7 % (40-80); PLATELET COUNT 335 10x3/uL (130-400); RBC 4.27 10x6/uL (4.00-5.40); RDW 14.5 % (11.5-14.5); WBC 9.7 10x3/uL (4.8-10.8)
[2019-12-07 07:40] LABS: ALBUMIN 2.5 g/dL (3.4-5.0); ALKALINE PHOSPHATASE 74 U/L (30-120); ALT (SGPT) 15 U/L (10-68); BILIRUBIN - TOTAL 0.18 mg/dL (0.2-1.3); CALCIUM 8.5 mg/dL (8.5-10.1); CARBON DIOXIDE 27.1 mmol/L (21.0-32.0); CHLORIDE - SERUM 108 mmol/L (98-107); CREATININE - SERUM 0.4 mg/dL (0.6-1.3); POTASSIUM - SERUM 3.7 mmol/L (3.5-5.1); PROTEIN - SERUM 5.5 g/dL (6.4-8.2); SODIUM 142 mmol/L (136-145); UREA NITROGEN 6 mg/dL (7-18); eGFR NON AFRICAN AMERICAN > 90 mL/min (90-120)
[2019-12-07 07:43] LABS: CALC OSMOLALITY 283 mosm/kg (275-300); GLUCOSE 151 mg/dL (74-106)
[2019-12-07 08:41] VITALS: BP 121/72
[2019-12-07 08:44] LABS: APTT 28.5 SECONDS (22.8-39.4); INR 1.04 (0.85-1.17); PROTIME 13.5 SECONDS (11.6-15.0)
--- NOTE | 2019-12-07 08:54 | NUR ---
SHE IS ALERT. SHE HAS HAD A SHOWER. PRN GIVEN FOR PAIN. HER FAMILY IS AT THE BEDSIDE. THE CALL LIGHT IS WITHIN REACH.
[2019-12-07 12:03] VITALS: BP 118/71
[2019-12-07 16:38] VITALS: BP 99/50
[2019-12-07 16:56] VITALS: BP 139/69
[2019-12-07 20:00] VITALS: BP 136/72
[2019-12-08] VITALS: BP 113/66
[2019-12-08 04:00] VITALS: BP 120/69
--- NOTE | 2019-12-08 04:30 | NUR ---
I have reviewed this patient and I concur with the Shift Assessment completed by the Licensed Practical Nurse today this shift.
[2019-12-08 05:01] LABS: BASOPHILS 0.2 % (0-2); EOSINOPHILS 4.4 % (0-7); HEMATOCRIT 35.9 % (36.0-48.0); HEMOGLOBIN 11.3 g/dL (12-16); IMMATURE GRANULOCYTES 0.2 % (0-5); LYMPHOCYTES 32.3 % (15-50); MCH 26.7 pg (26.0-34.0); MCHC 31.5 g/dL (31.0-37.0); MCV 84.7 fL (80.0-100.0); MEAN PLATELET VOLUME 10.2 fL (7.4-10.4); MONOCYTES 7.4 % (2-11); NEUTROPHILS 55.5 % (40-80); PLATELET COUNT 301 10x3/uL (130-400); RBC 4.24 10x6/uL (4.00-5.40); RDW 14.5 % (11.5-14.5); WBC 9.5 10x3/uL (4.8-10.8)
[2019-12-08 05:26] LABS: ALBUMIN 2.4 g/dL (3.4-5.0); ALKALINE PHOSPHATASE 68 U/L (30-120); ALT (SGPT) 17 U/L (10-68); BILIRUBIN - TOTAL 0.16 mg/dL (0.2-1.3); CALCIUM 8.5 mg/dL (8.5-10.1); CARBON DIOXIDE 24.8 mmol/L (21.0-32.0); CHLORIDE - SERUM 108 mmol/L (98-107); CREATININE - SERUM 0.4 mg/dL (0.6-1.3); POTASSIUM - SERUM 3.2 mmol/L (3.5-5.1); PROTEIN - SERUM 6.1 g/dL (6.4-8.2); SODIUM 141 mmol/L (136-145); eGFR NON AFRICAN AMERICAN > 90 mL/min (90-120)
[2019-12-08 05:29] LABS: CALC OSMOLALITY 275 mosm/kg (275-300); GLUCOSE 68 mg/dL (74-106); UREA NITROGEN 4 mg/dL (7-18)
[2019-12-08 08:13] LABS: HAPTOGLOBIN 252 mg/dL (42-296)
[2019-12-08 09:07] VITALS: BP 127/62
[2019-12-08] MEDS ORDERED: NICODERM CQ1 EAC3 TRANSDERM (11:39)
[2019-12-08] MEDS ORDERED: ELIQUIS5 MG PO (11:40)
[2019-12-08] MEDS ORDERED: PROTONIX40 MG PO (11:40)
[2019-12-08 12:11] LABS: ACLA - IGG AB <9 GPL U/mL (0-14); ACLA - IGM AB <9 MPL U/mL (0-12)
[2019-12-08 12:42] VITALS: BP 113/71
[2019-12-08 12:52] VITALS: BP 115/68
--- NOTE | 2019-12-08 13:22 | MORECARE ---
CASE MANAGEMENT DISCHARGE SUMMARY PATIENT: PARK ZAMBRANO UNIT: [id number] ADM DATE: 12/05/19 AGE: 43 : [birth year] SEX: F ROOM/BED: D.2205 AUTHOR: MERCEDEZDOC PHYSICIAN: REFERRING PHYSICIAN: TATIANNA LAZO MD DATE OF SERVICE: 12/08/19 Discharge Plan Patient Name: PARK ZAMBRANO Facility: [facility]:[place] : 1975 Planned Disposition: Home or Self Care Anticipated Discharge Date: Discharge Date: Expected LOS: Initial Reviewer: [email or web address] Initial Review Date: 12/05/2019 Generated: 12/08/19 2:22 pm Comments DCP- Discharge Planning Updated by [email or web address]: Isabela Small on 12/08/19 12:[address] Patient Name: PARK ZAMBRANO Admission Status: ER Accout number: [id number] Admission Date: 12-05-2019 : 1975 Admission Diagnosis: Attending: TATIANNA LAZO Current LOS: 3 Anticipated DC Date: Planned Disposition: Home or Self Care Primary Insurance: [place] PR[employer] OPTIONS [employer]GR[employer] Discharge Planning Comments: CM met with patient to complete initial dc planning assessment. CM educated patient on the CM role and verbal consent given by patient to complete assessment. Patient lives at home with her fianc? where she is independent with her care. At discharge patient plans to return home and feels this is a safe discharge. CM discussed availability of home health, rehab services, and medical equipment. Patient denied known discharge needs at this time. In her dc packet she will get a 10$ co pay [employer] card. I explained the card to her. Venkata will be her driver salesman home. CM will continue to follow and will assist as needed with dc plans/needs. Waste Specialist: Isabela Small DCPIA - Discharge Planning Initial Assessment Updated by [email or web address]: Isabela Small on 12/08/19 1:19 pm * Is the patient Alert and Oriented? Yes * How many steps to enter\exit or inside your home? * PCP [facility] * [facility] * Preadmission Environment Home with Family * ADLs Independent * Equipment Glucometer * List name and contact numbers for known caregivers / representatives who currently or will assist patient after discharge: VENKATA (BOYFRIEND) [phone] * Verbal permission to speak to the caregivers and representatives has been obtained from the patient. N/A * Community resources currently utilized None * Additional services required to return to the preadmission environment? No * Can the patient safely return to the preadmission environment? Yes * Has this patient been hospitalized within the prior 30 days at any hospital? No Patient Name: PARK ZAMBRANO Page 32485 at 1322 All edits/amendments must be made on the electronic document DICTATION DATE: 12/08/19 1322 SUPERVISOR INCISING: MILADYS 12/08/19 1322 RPT#: [id number] DC DATE: STATUS: ADM IN [facility] [address] [place] [address] END OF REPORT
--- NOTE | 2019-12-08 16:14 | NUR ---
IV REMOVED. PAPERWORK GONE OVER WITH, QUESTIONS ANSWERED. TAKEN DOWN STAIRS VIA WHEELCHAIR.
--- NOTE | 2019-12-09 08:36 | MORECARE ---
CASE MANAGEMENT DISCHARGE SUMMARY PATIENT: PARK ZAMBRANO UNIT: [id number] ADM DATE: 12/05/19 AGE: 43 : 77 SEX: F ROOM/BED: D.2205 AUTHOR: NIKITA NEWSOME PHYSICIAN: REFERRING PHYSICIAN: TATIANNA LAZO MD DATE OF SERVICE: 12/09/19 Discharge Plan Patient Name: PARK ZAMBRANO Facility: [facility]:[place] : 1975 Planned Disposition: Home or Self Care Anticipated Discharge Date: Discharge Date: 12/08/2019 Expected LOS: 0 Initial Reviewer: [email or web address] Initial Review Date: 12/05/2019 Generated: 12/09/19 9:36 am Comments DCP- Discharge Planning Updated by [email or web address]: Isabela Small on 12/08/19 12:[address] Patient Name: PARK ZAMBRANO Admission Status: ER Accout number: [id number] Admission Date: 12-05-2019 : 1975 Admission Diagnosis: Attending: TATIANNA LAZO Current LOS: 3 Anticipated DC Date: Planned Disposition: Home or Self Care Primary Insurance: [place] PR[employer]IONS [employer] Discharge Planning Comments: CM met with patient to complete initial dc planning assessment. CM educated patient on the CM role and verbal consent given by patient to complete assessment. Patient lives at home with her fianc? where she is independent with her care. At discharge patient plans to return home and feels this is a safe discharge. CM discussed availability of home health, rehab services, and medical equipment. Patient denied known discharge needs at this time. In her dc packet she will get a 10$ co pay [employer] card. I explained the card to her. Venkata will be her national flatbed truck driver home. CM will continue to follow and will assist as needed with dc plans/needs. Commutator Tester: Isabela Small DCPIA - Discharge Planning Initial Assessment Updated by [email or web address]: Isabela Small on 12/08/19 1:19 pm * Is the patient Alert and Oriented? Yes * How many steps to enter\exit or inside your home? * PCP [facility] * [facility] * Preadmission Environment Home with Family * ADLs Independent * Equipment Glucometer * List name and contact numbers for known caregivers / representatives who currently or will assist patient after discharge: VENKATA (BOYFRIEND) [phone] * Verbal permission to speak to the caregivers and representatives has been obtained from the patient. N/A * Community resources currently utilized None * Additional services required to return to the preadmission environment? No * Can the patient safely return to the preadmission environment? Yes * Has this patient been hospitalized within the prior 30 days at any hospital? No Last DP export: 12/08/19 12:22 pm Patient Name: PARK ZAMBRANO Page 04106 at 0836 All edits/amendments must be made on the electronic document DICTATION DATE: 12/09/19835 TEST DESK SUPERVISOR: MILADYS 12/09/19835 RPT#: [id number] DC DATE:12/08/19 STATUS: DIS IN [facility] [id number] [place] [address] END OF REPORT
[2019-12-10 11:11] LABS: PROTEIN S - FREE 129 % (57-157); PROTEIN S - TOTAL 130 % (60-150)
[2019-12-10 13:12] LABS: PROTEIN S - FREE 103 % (57-157); PROTEIN S - FUNCTIONAL 101 % (63-140); PROTEIN S - TOTAL 92 % (60-150)
[2019-12-10 17:09] LABS: FACTOR II DNA ANALYSIS Negative (())
== END 2019-12-08 16:21 | disposition home or self-care (01) | DRG 301 ==
LOC: D.ER 11:50 → D.MS 12:58
PROVIDERS: Family Medicine; General Practice; Internal Medicine Hematology & Oncology; ADMIT Emergency Medicine; ATTEND Emergency Medicine
PROC: B5091ZZ Plain Radiography of Inferior Vena Cava using Low Osmolar Contrast (ICD-10-PCS; principal; 2019-12-07 10:50)
DX: I82.4Z2 Acute embolism and thrombosis of unspecified deep veins of left distal lower extremity (principal); F41.9 Anxiety disorder, unspecified; F17.200 Nicotine dependence, unspecified, uncomplicated; E10.9 Type 1 diabetes mellitus without complications

== ENCOUNTER 2020-10-08 16:41 | Inpatient (IN) | payer BC ==
[~2020-10-08] VITALS: Ht 165.1 cm; Wt 88.2 kg
--- NOTE | ~2020-10-08 | PRO ---
PATIENT:PARK ZAMBRANO MEDICAL RECORD: [id number] : 77 LOCATION:[facility]3 ADMISSION DATE: 10/08/20 PROCEDURE PERFORMED BY: BALJIT DAVIS MD DATE OF PROCEDURE: 10/08/2020 PROCEDURE: 1. Left heart catheterization. 2. PTCA/stent -- proximal, mid and distal RCA. HISTORY: The patient is a 44-year-old female with multiple medical problems including hypertension, diabetes mellitus, peripheral arterial disease, smoker, who presented to local MD with complaints of chest pain. The patient then presented to the Emergency Room from a local clinic. Her EKG in the Emergency Room showed a sinus rhythm with an inferior STEMI pattern. The patient was then taken to the cardiac catheterization for emergent left heart catheterization. PROCEDURE I Left heart catheterization: The patient was brought to cardiac catheterization lab. Consent was obtained and placed on chart. Right groin prepped and draped in sterile fashion. The patient received IV Versed and Fentanyl for sedation. 1% Xylocaine applied to the right femoral region. Percutaneous access to right femoral artery obtained via Seldinger technique. A 6-Kazakh sheath was inserted into the right femoral artery. Pigtail catheter advanced over a guidewire under fluoroscopic guidance to central aorta. Obtain central aortic pressure, pigtail catheter advanced to the left ventricular chamber. After obtaining left ventricular pressure, left ventriculogram was obtained. Pigtail was removed over a wire. Left Clay catheter was advanced over a guidewire under fluoroscopic guidance to the coronary cusp. Left Clay seen in the ostium of the left main. Contrast angiogram, left coronary system was obtained. Right Clay advanced over a guidewire under fluoroscopic guidance to the coronary cusp. Right Clay seated in the ostium of the right coronary artery. Contrast angiogram of right coronary artery was obtained. Right Clay was removed. Sheath was aspirated and flushed. INTERPRETATION: 1. Left ventricle -- inferior basilar and inferior apical hypokinesis with preserved ejection fraction of 50%. 2. Coronary, left main - normal. No stenosis. LAD 20% to 30% proximal mid stenosis; 34% ostial D1 branch stenosis, circumflex 40%-50% proximal stenosis; 50% mid vessel stenosis. RCA 70%-80% mid stenosis; total occlusion of the distal vessel. Right dominant coronary system. IMPRESSION: 1. Inferior basal and inferior apical hypokinesis with preserved ejection fraction of 50%. 2. Coronaries -- 70% to 80% mid RCA stenosis; total occlusion distal RCA. Mild to moderate atherosclerotic plaquing of the LAD and circumflex epicardial coronary arteries. PROCEDURE II PTCA/stent -- mid RCA/distal RCA. PROCEDURE IN DETAIL: After review of coronary angiogram and given the patient's PROCEDURE NOTE [id number] PARK ZAMBRANO presentation of inferior STEMI, I proceeded with PCI of the RCA. The patient received heparin bolus and also Integrilin bolus drip. A right Clay catheter that was advanced under fluoroscopic guidance and seated in the ostium of the right coronary artery. After obtaining contrast angiogram, 190 cm BMW interventional wire was advanced into the distal posterolateral branch of the RCA. Coronary angiogram was obtained. A 2.5 x 15 mm balloon was then advanced to the distal RCA and inflated at nominal pressures. The balloon was then withdrawn into the guide. Contrast angiogram revealed BILLY 3 distal flow with spasm in the posterolateral branches. The patient received intracoronary nitroglycerin. As angiogram, I proceeded with stenting of the distal RCA just at the posterolateral/PDA bifurcation. A 2.5 x 15 mm [place] stent was then advanced under fluoroscopic guidance to the site of distal stenosis and deployed at 12-14 atmospheres. The stent balloon was removed. Repeat coronary angiogram revealed BILLY 3 distal flow with mild thrombus burden present. Then a 2.5 x 15 mm [place] stents were then advanced and deployed into the mid, proximal mid RCA and deployed. The stent balloon was removed. Repeat coronary angiogram revealed no residual stenosis with BILLY 3 distal flow in the RCA. Intervention wire was removed. The guide was removed over a guidewire. Upon removing the femoral sheath, ExoSeal was deployed at the right femoral region. The patient tolerated the procedure without complication. The patient was then transferred to ICU for further postoperative care and management. The patient also received Brilinta 180 mg in the cardiac cath technician. IMPRESSION: Successful balloon angioplasty and stenting of proximal, mid, and totally occluded distal RCA with BILLY 3 distal flow and no residual stenosis. TRANSINT:[id number] Voice Confirmation ID: [id number] DOCUMENT ID: [id number] BALJIT DAVIS MD CC: [id number] DICTATION DATE: 10/08/201855 REAL ESTATE DIRECTOR: 10/09/20 0232 ADM IN [facility] [address] [id number]
--- NOTE | ~2020-10-08 | CN ---
PATIENT NAME:PARK ZAMBRANO MEDICAL RECORD: [id number] : 77 LOCATION:[id number] ADMIT DATE: 10/08/20 ACCOUNT: [id number] CONSULTING PHYSICIAN: BALJIT DAVIS MD REFERRING PHYSICIAN: BALJIT DAVIS MD DATE OF CONSULTATION: 10/09/2020 HISTORY OF PRESENT ILLNESS: The patient is a 44-year-old female with multiple medical problems including diabetes mellitus, hypertension, hyperlipidemia, DVTs, who presented to the Emergency Room with complaints of chest pain. EKG revealed acute inferior wall STEMI. The patient was taken to cardiac catheterization lab with PCI/stenting of RCA. The patient then admitted to the ICU postoperatively. The patient without complaints today. The patient states feels well. No recurrent chest pain symptomatology. I was asked to evaluate from a cardiovascular standpoint. PAST MEDICAL HISTORY: Significant for; 1. Atherosclerotic heart disease. 2. Status post PCI/stent of RCA. 3. Status post inferior wall STEMI. 4. Diabetes mellitus. 5. History of DVT. 6. Hypertension. 7. Hyperlipidemia. PHYSICAL EXAMINATION: GENERAL: Pleasant white female in no apparent distress. VITAL SIGNS: Blood pressure 113/77, pulse 80s (regular). HEENT: Sclerae are clear; conjunctivae pink. NECK: Supple. No appreciated JVD. HEART: Regular rhythm and rate. LUNGS: Clear bilaterally. ABDOMEN: Obese. EXTREMITIES: Negative for edema. NEUROLOGIC: Nonfocal. LABORATORY DATA: White blood cell count 13.6, hemoglobin and hematocrit 14.7 and 44.5, platelet count is 284. Sodium 136, potassium 3.9, BUN 9, creatinine 0.7, glucose 398, AST 141, ALT 36, troponin 18.4. Total cholesterol 218, LDL 126 (elevated). MEDICATIONS: 1. Metoprolol 25 mg daily. 2. Apixaban 5 mg p.o. b.i.d. 3. Aspirin 81 mg daily. 4. Brilinta 90 mg b.i.d. ASSESSMENT AND PLAN: 1. Status post inferior wall STEMI -- hemodynamically stable. 2. Atherosclerotic heart disease. 3. Status post PCI/stenting - RCA. 4. Diabetes mellitus. 5. Hypertension. 6. Hyperlipidemia. 7. History of deep venous thrombosis. CONSULT REPORT [id number] JUAN MANUELPARK D 8. History of tobacco use. 9. Moderate obesity. 10. Hyperlipidemia. PLAN: Continue current medical management at this time except we will restart the Eliquis 5 mg p.o. b.i.d. and also start metoprolol 25 mg daily. The patient will be scheduled for echocardiogram to assess LV function, valvular status. The patient may be transferred from ICU to the telemetry floor. Further recommendation as clinically indicated. Thank you for allowing us to participate in the care of this patient. TRANSINT:[id number] Voice Confirmation ID: [id number] DOCUMENT ID: [id number] BALJIT DAVIS MD CC: [id number] DICTATION DATE: 10/09/20 1039 APPLICATIONS SALES REPRESENTATIVE: 10/09/20 1115 ADM IN [facility] [address] [place] [address]
--- NOTE | ~2020-10-08 | HEMODYNAMI ---
PATIENT:PARK ZAMBRANO MEDICAL RECORD: [id number] : 77 [facility] [id number] ADMISSION DATE: 10/08/20 Generatedon:18:42 Patient name: PARK ZAMBRANO Patient #: [id number] SSN: : 1975 Date of study: 10/08/2020 Page: Of Hemodynamic Procedure Report Patient Data Patient Demographics Procedure consent was obtained First Name: PARK Gender: Female Last Name: JUAN MANUEL : 1975 Middle Initial: D Age: 44 year(s) Patient #: [id number] Race: Unknown Additional ID: [id number] Contact details [address]: [address] [place] [address] State: [place] City: [place] Zip code: [address] Past Medical History Allergies: No known allergies Admission Admission Data Admission Date: 10/08/2020 Admission Time: 16:59 Arrival Date: 10/08/2020 Arrival Time: 0:00 Room #: [facility]7 Height (in.): 64.96 BSA: 1.93 (m2) Height (cm.): 165 BMI: 31.59 (kg/m2) Weight (lbs.): 189.6 Weight (kg.): 86 Lab Results Lab Result Date: 10/08/2020 Lab Result Time: 0:00 CBC Name Units Result Min Max Hematocrit % 44.5 --(*---)-- 42 54 Hemoglobin g/dl 14.7 --(-*--)-- 13.5 17.5 Procedure Procedure Types Cath Procedure Diagnostic Procedure [facility] w/Coronaries Sedation Charges Moderate Sedation 40-54 minutes PCI Procedure Hemochron ACT Test AMI/SVG/PROGRAMMER OPERATOR NUMERICAL CONTROL PTCA or Stent AMI-BMS/ARELY Initial Procedure Description Procedure Date Procedure Date: 10/08/2020 Procedure Start Time: 17:49 Procedure End Time: 18:48 Procedure Staff Name Function Edis Pena RN Nurse Rosetta Jensen RT Monitor Andrea Vargas RT Scrub Berenice Hoskins MD Performing Physician Procedure Data Cath Procedure Fluoroscopy Diagnostic fluoroscopy Total fluoroscopy Time: time: 11.4 min 11.4 min Diagnostic fluoroscopy Total fluoroscopy dose: dose: 1336 mGy 1336 mGy Contrast Material Contrast Material Type Amount (ml) Isovue 300 155 Entry Location Entry Primary Successful Side Size Upsize Upsize Entry Closure Succes sful Closure Location (Fr) 1 (Fr) 2 (Fr) Remarks Device Remarks Femoral Right 6 Fr Exoseal artery Short Estimated blood loss: 10 ml Diagnostic catheters Device Type Used For End Catheter Placement MULTIPACK Pigtail 5 Fr Procedure catheter MULTIPACK JL 4.0 5Fr Procedure catheter MULTIPACK 3DRC 5Fr Procedure catheter Procedure Complications No complications Procedure Medications Medication Administration Route Dosage Oxygen NC 2 l/min Heparin Flush Bag added to field 2 bags (1000units/500ml NS) 0.9% NaCl I.V. 100 ml/hr Lidocaine 2% added to field 20 Fentanyl I.V. 50 mcg Versed I.V. 1 mg Fentanyl I.V. 50 mcg Versed I.V. 1 mg Fentanyl I.V. 50 mcg Fentanyl I.V. 50 mcg Heparin Bolus I.V. 2000 units Versed I.V. 1 mg Integrilin (Bolus I.V. 7.9 ml 2mg/ml) Integrilin (Bolus wasted 2.1 ml 2mg/ml) Nitroglycerin IC/IA I.C. 100 mcg Zofran I.V. 4 mg Integrilin Drip I.V. drip 13.8 ml/hr (75mg/100ml) Versed I.V. 1 mg Brilinta P.O. 180 mg Hemodynamics Rest BSA: 1.93 (m2) HGB: 14.7 (g/dl) O2 Consumption: Estimated: 224.03 (ml/min) O2 Co nsumption indexed: Estimated:116.08 (ml/min/m) Heart Rate: 111 (bpm) Pressure Samples Time Site Value (mmHg) Purpose Heart Use Rate(bpm) 17:52 AO 84/32(54) Snapshot 98 17:53 LV 132/-3,4 Snapshot 100 17:54 AO 106/81(94) Pullback 93 Gradients Valve Time Site Site 2 Mean SEP/DFP Peak To Heart Use 1 (mmHg) (sec/min) Peak Rate (mmHg) (bpm) Aortic 17:54 LV AO 93 106/81(94) Snapshots Pre Cath Intra NCS Post Cath Vital Signs Time Heart Resp SPO2 etCO2 NIBP (mmHg) Rhythm Pain Sedation Rate (ipm) (%) (mmHg) Status Level (bpm) 17:44:54 98 17 98 0 149/96(127) NSR 0 (11) 10(A) , No pain 17:49:20 101 16 98 0 151/96(122) NSR 0 (11) 10(A) , No pain 17:53:40 99 16 96 0 141/90(106) NSR 0 (11) 10(A) , No pain 17:58:04 95 17 98 0 135/84(109) NSR 0 (11) 10(A) , No pain 18:02:25 97 16 97 0 130/87(107) NSR 0 (11) 10(A) , No pain 18:06:45 100 16 97 0 122/83(95) NSR 0 (11) 10(A) , No pain 18:11:01 96 16 98 0 129/84(100) NSR 0 (11) 10(A) , No pain 18:15:17 91 17 98 0 108/68(88) NSR 0 (11) 10(A) , No pain 18:19:33 85 17 96 0 90/65(77) NSR 0 (11) 10(A) , No pain 18:23:43 81 17 98 0 112/60(78) NSR 0 (11) 10(A) , No pain 18:28:01 72 17 97 0 106/67(81) NSR 0 (11) 10(A) , No pain 18:32:19 77 17 97 0 108/56(74) NSR 0 (11) 10(A) , No pain 18:36:29 104 17 99 0 113/84(96) NSR 0 (11) 10(A) , No pain 18:40:45 75 17 97 0 105/60(80) NSR 0 (11) 10(A) , No pain 18:45:01 103 18 0 111/66(84) NSR 0 (11) 10(A) , No pain 18:49:21 70 13 0 96/57(74) NSR 0 (11) 10(A) , No pain Medications Time Medication Route Dose Verified Delivered Reason Notes Effectiveness by by 17:46:36 Oxygen NC 2 Berenice Edis Per physician l/min Gato Pena RN 17:46:45 Heparin Flush added 2 Berenice Edis used for Bag to bags Gato Pena RN procedure (1000units/500ml field NS) 17:46:54 0.9% NaCl I.V. 100 Berenice Edis Per physician ml/hr Gato Pena RN 17:47:09 Lidocaine 2% added 20ml Berenice Edis for local to vial Gato Pena RN anesthetic field 17:47:18 Fentanyl I.V. 50 Berenice Edis for sedation mcg Gato Pena RN 17:47:25 Versed I.V. 1 mg Berenice Edis for sedation Gato Pena RN 17:49:41 Fentanyl I.V. 50 Berenice Edis for sedation mcg Gato Pena RN 17:49:45 Versed I.V. 1 mg Berenice Edis for sedation Gato Pena RN 17:54:14 Fentanyl I.V. 50 Berenice Edis for sedation mcg Gato Pena RN 17:58:23 Fentanyl I.V. 50 Berenice Edis for sedation mcg Gato Pena RN 18:03:26 Heparin Bolus I.V. 2000 Berenice Edis for units Gato Pena RN anticoagulation 18:04:47 Versed I.V. 1 mg Berenice Edis for sedation Gato Pena RN 18:09:36 Integrilin I.V. 7.9 Berenice Edis for (Bolus 2mg/ml) ml Gato Pena RN anticoagulation 18:09:45 Integrilin wasted 2.1 Berenice Edis for (Bolus 2mg/ml) ml Gato Pena RN anticoagulation 18:16:47 Nitroglycerin I.C. 100 Berenice Berenice for IC/IA mcg Gato Hoskins MD vasodilation 18:17:27 Zofran I.V. 4 mg Berenice Edis for nausea Gato Pena RN 18:21:35 Integrilin Drip I.V. 13.8 Berenice Edis for (75mg/100ml) drip ml/hr Gato Pena RN anticoagulation 18:21:44 Versed I.V. 1 mg Berenice Edis for sedation Gato Pena RN 18:39:04 Brilinta P.O. 180 Berenice Randhawa for mg Gato Pena RN antiplatelet therapy Procedure Log Time Note 17:28:29 Informed consent obtained and on chart 17:29:03 Procedure Status Emergent Heart Cath (AMI). 17:29:04 Time tracking: Regular hours (M-F 7:00 - 5:00) 17:29:06 Plan of Care:Hemodynamics will remain stable., Cardiac rhythm will remain stable., Comfort level will be maintained., Respiratory function will remain adequate., Patient/ family verbilizes understanding of procedure., Procedure tolerated without complication., Recovers from procedure without complications.. 17:29:10 Edis Pena RN sent for patient. Start room use. 17:32:18 H&P Date Dictated: 10/08/2020 ER History on chart.. 17:32:34 Patient allergic to No known allergies 17:32:52 Lab Result : Hematocrit 44.5 % 17:32:52 Lab Result : Hemoglobin 14.7 g/dl 17:33:00 Use device set Femoral Dx 17:33:01 ACIST Syringe (81225) opened to sterile field. 17:33:02 Bag Decanter (2002S) opened to sterile field. 17:33:04 ACIST Hand Control (96571) opened to sterile field. 17:33:04 ACIST Manifold (10723) opened to sterile field. 17:33:05 Tegaderm 4 x 4 (1626W) opened to sterile field. 17:33:06 Medline Cath Pack ([id number]) opened to sterile field. 17:33:08 DIAGNOSTIC Multipack 5Fr catheter set ([id number]) opened to sterile field. 17:33:09 EMERALD Guide Wire (502-455) opened to sterile field. 17:33:13 SHEATH 6FR [place] ([id number]) opened to sterile field. 17:33:17 INFLATOR Merit BasixCompak (PK6662) opened to sterile field. 17:33:21 BMW 190cm [place] 2 J wire ([id number]) opened to sterile field. 17:37:30 Patient Weight : 189.6 lbs 17:37:36 Patient Height : 64.96 inches 17:37:39 Arrival Date: 10/08/2020 12:00:00 AM 17:43:30 Patient received from ED to CCL 1 Alert and oriented. Tansferred to table in Supine position. 17:43:31 ECG and BP/O2 sat monitors applied to patient. 17:43:31 Correct patient and procedure confirmed by team. 17:43:31 Warm blankets applied, and kala hugger turned on for patient comfort. 17:43:32 Vital chart was started 17:43:33 Baseline sample Acquired. 17:43:39 Rhythm: sinus tachycardia, w/ ST elevation 17:43:40 Pre-procedure instructions explained to patient. 17:43:40 Full Disclosure recording started 17:43:41 Pre-op teaching completed and patient verbalized understanding. 17:43:46 Is patient on blood thinner?Yes 17:43:49 ACC The patient was administered the following blood thiners within the last 24 hours: Eliquis 17:43:51 Patient diabetic? Yes. 17:44:05 If diabetic: On Metformin? No 17:44:15 Patient not . Patient has had tubal. 17:44:17 Previous problem with sedation/anesthesia? No ? 17:44:18 Snore? Yes 17:44:19 Sleep apnea? No 17:44:21 Deviated septum? No 17:44:23 Opens mouth fully? Yes 17:44:24 Sticks out tongue? Yes 17:44:26 Sticks out tongue? Yes 17:44:31 Patient pain scale 10/10 ?. 17:44:35 IV patent on arrival in left antecubital with 0.9% NaCl at O. 17:44:36 Lab results completed and on chart. 17:44:39 Alarms reviewed by R. N. 17:44:39 Right groin area was prepped with chlora-prep and draped in sterile fashion 17:44:40 Sharps counted by scrub and verified by R.N. 17:44:40 Sharps counted by scrub and verified by R.N. 17:44:41 --------ALL STOP TIME OUT------ 17:44:42 Final Timeout: patient, procedure, and site verified with staff and physician. All members of the team are in agreement. 17:44:43 Right groin site verified by team. 17:44:45 Fire Safety Assessment: A--An alcohol-based skin anteseptic being used preoperatively., C--Open oxygen or nitrous oxide is being used., D--An ESU, laser, or fiber-optic light is being used. 17:44:48 Physical assessment completed. ASA score P 2 - A patient with mild systemic disease as per Berenice Hoskins MD. 17:44:49 1) 90+ Normal kidney functon but urine findings or structural abnormalities or genetic trait point to kidney disease. 17:44:51 Maximum allowable contrast dose (3.7 X eGFR X 0.75)250 ml. 17:44:54 Sedation plan: IV Moderate Sedation Medication:Versed, Fentanyl 17:46:36 Oxygen 2 l/min NC was administered by Edis Pena RN; Per physician; Verbal order read back and verified. 17:46:45 Heparin Flush Bag (1000units/500ml NS) 2 bags added to field was administered by Edis Pena RN; used for procedure; Verbal order read back and verified. 17:46:54 0.9% NaCl 100 ml/hr I.V. was administered by Edis Pena RN; Per physician; Verbal order read back and verified. 17:47:09 Lidocaine 2% 20ml vial added to field was administered by Edis Pena RN; for local anesthetic; Verbal order read back and verified. 17:47:18 Fentanyl 50 mcg I.V. was administered by Edis Pena RN; for sedation; Verbal order read back and verified. 17:47:25 Versed 1 mg I.V. was administered by Edis Pena RN; for sedation; Verbal order read back and verified. 17:48:53 Procedure started. 17:48:56 Zero performed for pressure channel P1 17:49:13 IV Extension Set opened to sterile field. 17:49:18 Local anesthetic to right femoral artery with Lidocaine 2% by Berenice Hoskins MD.INITIAL ACCESS ONLY 17:49:41 Fentanyl 50 mcg I.V. was administered by Edis Pena RN; for sedation; Verbal order read back and verified. 17:49:45 Versed 1 mg I.V. was administered by Edis Pena RN; for sedation; Verbal order read back and verified. 17:50:46 Zero performed for pressure channel P1 17:51:05 A 6 Fr Short sheath was inserted into the Right Femoral artery 17:52:04 A MULTIPACK Pigtail 5 Fr catheter was advanced over the wire and used for Procedure. 17:52:10 LV gram done using MAGALLANES 17:52:12 Injector settings: Ml/sec: 10, Volume: 20, 17:53:29 Zero performed for pressure channel P1 17:54:07 EF : 55 % 17:54:14 Fentanyl 50 mcg I.V. was administered by Edis Pena RN; for sedation; Verbal order read back and verified. 17:54:16 Catheter removed. 17:54:34 A MULTIPACK JL 4.0 5Fr catheter was advanced over the wire and used for Procedure. 17:58:07 LCA angiography performed. 17:58:10 Catheter exchanged over wire. 17:58:23 Fentanyl 50 mcg I.V. was administered by Edis Pena RN; for sedation; Verbal order read back and verified. 17:58:35 A MULTIPACK 3DRC 5Fr catheter was advanced over the wire and used for Procedure. 17:59:54 ACT drawn and resulted at 163 seconds. (normal therapeutic range 180-240 seconds). 18:01:09 RCA angiography performed. 18:01:49 Catheter exchanged over wire. 18:01:50 Proceeding to intervention. 18:01:58 Pre PCI Site: [place] RCA has 100% stenosis. 18:02:05 ACC Pre-intervention BILLY Flow is 0. 18:03:13 GUIDE 6FR JR 4.0 catheter ([id number]) opened to sterile field. 18:03:19 6 Fr JR 4 guide catheter was inserted over the wire 18:03:26 Heparin Bolus 2000 units I.V. was administered by Edis Pena RN; for anticoagulation; Verbal order read back and verified. 18:04:47 Versed 1 mg I.V. was administered by Edis Pena RN; for sedation; Verbal order read back and verified. 18:07:04 BMW 190 wire advanced. 18:09:23 Wire advanced across lesion. 18:09:36 Integrilin (Bolus 2mg/ml) 7.9 ml I.V. was administered by Edis Pena RN; for anticoagulation; Verbal order read back and verified. 18:09:45 Integrilin (Bolus 2mg/ml) 2.1 ml wasted was administered by Edis Pena RN; for anticoagulation; Verbal order read back and verified. 18:11:07 Inflate balloon Inflation number: 1 A EUPHORA 2.5 x 15 Balloon ([id number]) was prepped and advanced across the Mid RCA , then inflated to 8 ADILIA for 0:30 (min:sec) . 18:13:55 Balloon removed over the wire. 18:16:47 Nitroglycerin IC/IA 100 mcg I.C. was administered by Berenice Hoskins MD; for vasodilation; Verbal order read back and verified. 18:17:27 Zofran 4 mg I.V. was administered by Edis Pena RN; for nausea; Verbal order read back and verified. 18:21:35 Integrilin Drip (75mg/100ml) 13.8 ml/hr I.V. drip was administered by Edis Pena RN; for anticoagulation; Verbal order read back and verified. 18:21:37 Place stent Inflation Number: 1 A BETTIE RX 2.5 x 15 stent ([id number]) was prepped and advanced across the Dist RCA . The stent was deployed at 12 ADILIA for 0:27 (min:sec) . 18:21:44 Versed 1 mg I.V. was administered by Edis Pena RN; for sedation; Verbal order read back and verified. 18:22:21 Stent catheter was removed intact over wire. 18:28:50 Place stent Inflation Number: 1 A BETTIE RX 2.75 x 18 stent ([id number]) was prepped and advanced across the Prox RCA . The stent was deployed at 12 ADILIA for 0:40 (min:sec) . 18:29:01 Stent catheter was removed intact over wire. 18:31:49 Guide catheter removed. 18:31:49 Wire removed. 18:32:21 EXOSEAL 6Fr (EX600) opened to sterile field. 18:34:43 Sheath removed intact; hemostasis achieved with Exoseal to the Right Femoral artery. 18:34:45 Procedure ended.(Physican Out) 18:34:56 Fluoroscopy time 11.40 minutes. 18:35:00 Fluoroscopy dose: 1336 mGy 18:35:00 Flurop Dose total: 1336 18:35:09 Contrast amount:Isovue 300 155ml. 18:35:17 Dose Area Product 45658 mGy/cm. 18:35:19 Maximum allowable dose exceeded? No. 18:35:20 Sharps counted by scrub and verified by R.N. 18:35:23 Post-op/insertion site Right Femoral artery dressed using a 4 x 4 and Tegaderm. 18:35:27 Post-procedure physical assessment completed. ASA score P 2 - A patient with mild systemic disease as per Berenice Hoskins MD. 18:35:31 Post procedure rhythm: sinus tachycardia 18:36:47 ACT drawn and resulted at 174 seconds. (normal therapeutic range 180-240 seconds). 18:38:52 Estimated blood loss: 10 ml 18:38:53 Post procedure instruction explained to patient.Patient verbalizes understanding. 18:38:54 Patient needs reinforcement of post procedure teaching. 18:39:04 Brilinta 180 mg P.O. was administered by Edis Pena RN; for antiplatelet therapy; Verbal order read back and verified. 18:39:32 Procedure type changed to Cath procedure, Diagnostic procedure, LHC, LHC w/Coronaries, Sedation Charges, Moderate Sedation 40-54 minutes, PCI procedure, Hemochron ACT Test, AMI/SVG/PROGRAMMER OPERATOR NUMERICAL CONTROL PTCA or Stent, AMI-BMS/ARELY Initial 18:40:02 Procedure and supply charges have been captured, reviewed, submitted and are correct. 18:40:06 Procedure Complication : No complications 18:42:43 [facility] Findings: MVD- PCI performed (see procedure note) 18:42:44 Operative report dictated upon procedure completion. 18:42:45 See physician's report for complete and final results. 18:48:34 Report given to ICU. 18:48:37 Patient transfered to ICU with Bed. 18:48:51 ACC-PCI Only Patient was given prescriptions, or instructed by Berenice Hoskins MD to start/continue the following medications upon discharge: Brilinta 18:48:55 Vital chart was stopped 18:48:57 Full Disclosure recording stopped 18:48:57 Procedure ended. 18:49:01 End room use (Document Last) Intervention Summary Intervention Notes Time ActionType Lesion and Equipment Used Action# Pressure Duration Attributes 18:11:07 Inflate Mid RCA EUPHORA 2.5 x 1 8 00:30 balloon 15 Balloon ([id number]) 18:21:37 Place stent Dist RCA BETTIE RX 2.5 x 1 12 00:27 15 stent ([id number]) 18:28:50 Place stent Prox RCA BETTIE RX 2.75 x 1 12 00:40 18 stent ([id number]) Device Usage Item Name Manufacture Quantity Catalog Hospital Part [facility] Lot# / Number Charge Number Stock Stock Serial# Code ACIST Syringe Acist 1 63887 701506 921892 811955 20 (91458) Medical Systems Inc Bag Decanter Microtek 1 2001S 385675 26822 221430 5 () Medical Inc. ACIST Manifold Acist 1 61159 017050 582822 120004 5 (52306) Medical Systems Inc ACIST Hand Acist 1 27151 709198 770598 147164 5 Control Medical (57289) Systems Inc Tegaderm 4 x 4 3M 1 1626W 356300 224378 309893 5 (1626W) Medline Cath Medline 1 [id number] 640353 00341 714951 5 Pack ([id number]) DIAGNOSTIC Cardinal 1 CD3482 705687 20525 792275 30 Multipack 5Fr Health catheter set (QR7206) EMERALD Guide Cardinal 1 502-455 095256 687702 637891 5 Wire (502-455) Health SHEATH 6FR Terumo 1 UPL172 101489 060241 398456 40 [place] (IZY844) INFLATOR Merit Merit 1 SH9696 769722 743235 657170 15 [facility] (HD6129) BMW 190cm Ha 1 [id number] 380977 39128 793223 5 Montgomery 2 J Vascular wire ([id number]) IV Extension Hospira 1 67380-21 092786 74350 474293 5 Set MULTIPACK Cardinal 1 466708 5 Pigtail 5 Fr Health catheter MULTIPACK JL Cardinal 1 048980 5 4.0 5Fr Health catheter MULTIPACK 3DRC Cardinal 1 819824 5 5Fr catheter Health GUIDE 6FR JR Medtronic 1 [id number] 906387 01274 252051 1 4.0 catheter ([id number]) EUPHORA 2.5 x Medtronic 1 [id number] 472803 325599 978955 5 [id number] 15 Balloon ([id number]) BETTIE RX 2.5 x Medtronic 1 [id number] 630294 5406948 664466 5 [id number] 15 stent ([id number]) BETTIE RX 2.75 x Medtronic 1 [id number] 359973 3551382 883007 5 [id number] 18 stent ([id number]) EXOSEAL 6Fr Cardinal 1 EX600 528512 281923 459479 10 (EX600) Health Signature Audit [place] Stage Time Signature Unsigned Intra-Procedure 10/08/2020 Rosetta Jensen 6:49:10 PM RT(R) Intra-Procedure 10/08/2020 Edis Pena 6:49:29 PM RN Intra-Procedure 10/08/2020 Berenice Hoskins MD 6:50:06 PM 10/10/2020 8:41:18 AM Intra-Procedure 10/10/2020 Rosetta Jensen 8:42:02 AM RT(R) Intra-Procedure 10/10/2020 Edis Pena 8:42:18 AM RN Intra-Procedure 10/10/2020 Berenice Hoskins 8:42:41 AM Signatures Nurse : Edis Pena RN Signature : Date : Time : Monitor : Rosetta Jensen Signature : RT Date : Time : Performing Physician : Signature : Berenice Hoskins MD Date : Time : [place] [address] [address], [place] [address]
[~2020-10-08 16:41] MED LIST changes: +ELIQUIS5 MG PO; +NICODERM CQ1 EAC3 TRANSDERM; +PROTONIX40 MG PO; +XARELTO20 MG PO
[2020-10-08 17:13] VITALS: BP 144/73
[2020-10-08 17:18] LABS: BASOPHILS 1.2 % (0-2); EOSINOPHILS 1.9 % (0-7); HEMATOCRIT 44.5 % (36.0-48.0); HEMOGLOBIN 14.7 g/dL (12-16); LYMPHOCYTES 20.1 % (15-50); MCH 27.1 pg (26.0-34.0); MCV 82.1 fL (80.0-100.0); MEAN PLATELET VOLUME 9.2 fL (7.4-10.4); MONOCYTES 5.6 % (2-11); NEUTROPHILS 71.2 % (40-80); PLATELET COUNT 284 10x3/uL (130-400); RBC 5.42 10x6/uL (4.00-5.40); RDW 14.5 % (11.5-14.5); WBC 13.6 10x3/uL (4.8-10.8)
[2020-10-08 17:23] LABS: APTT 23.5 SECONDS (22.8-39.4); INR 1.04 (0.85-1.17); PROTIME 12.5 SECONDS (11.6-15.0)
[2020-10-08 17:25] LABS: CALC OSMOLALITY 287 mosm/kg (275-300); CALCIUM 9.5 mg/dL (8.5-10.1); CARBON DIOXIDE 29.5 mmol/L (21.0-32.0); CHLORIDE - SERUM 100 mmol/L (98-107); CREATININE - SERUM 0.7 mg/dL (0.6-1.3); POTASSIUM - SERUM 3.9 mmol/L (3.5-5.1); SODIUM 136 mmol/L (136-145); UREA NITROGEN 9 mg/dL (7-18); eGFR NON AFRICAN AMERICAN > 90 mL/min (90-120)
[2020-10-08 17:32] LABS: GLUCOSE 398 mg/dL (74-106)
[2020-10-08 17:47] LABS: ALBUMIN 3.7 g/dL (3.4-5.0); ALKALINE PHOSPHATASE 114 U/L (30-120); ALT (SGPT) 36 U/L (10-68); BILIRUBIN - TOTAL 0.25 mg/dL (0.2-1.3); CKMB 214.7 U/L (0.0-3.6); MAGNESIUM - SERUM 1.8 mg/dL (1.8-2.4); PROTEIN - SERUM 8.1 g/dL (6.4-8.2)
[2020-10-08 17:58] LABS: CHOL - HDL RATIO 3.4 ratio (2.3-4.1)
[2020-10-08 18:04] LABS: CREATINE KINASE 1519 UL (21-215)
[2020-10-08 20:00] VITALS: BP 98/61
[2020-10-08 21:00] VITALS: BP 98/64
[2020-10-08 21:21] VITALS: BP 85/53; Ht 165.1 cm; Wt 88.2 kg
[2020-10-08 22:00] VITALS: BP 102/66
[2020-10-08 23:00] VITALS: BP 96/67
[2020-10-09] VITALS (15 sets, daily range): BP systolic 81–113; BP diastolic 45–79
--- NOTE | 2020-10-09 08:23 | NUR ---
LYING IN BED RESTING AT THIS TIME. VSS. NO ACUTE DISTRESS NOTED. PT RESTING WITH EYES CLOSED. OPENS EYES WHEN SPOKEN TO. DENIES ANY PAIN OR DISCOMFORT. RT GROIN SITE WDL AND CDI. CALL LIGHT AND PERSONAL ITEMS IN REACH. WILL CONTINUE PLAN OF CARE.
--- NOTE | 2020-10-09 10:48 | NUR ---
PER DR DAVIS, TRANSFER TO THE FLOOR AND START PT ON ELIQUIS 5MG BID AND METOPROLOL 25MG QD, AND ORDER AN ECHO FOR THE MORNING. NOTIFIED PHYSICIAN OF PTS SBP TRENDING 90-113 AND HE STATED THAT IS OKAY TO GO AHEAD AND GIVE THE METOPROLOL. HEART RATE IS 87 SINUS. WILL CONTINUE PLAN OF CARE.
--- NOTE | 2020-10-09 13:37 | NUR ---
REPORT CALLED TO RECIEVING NURSE FOR PT TO TRANSFER TO ROOM 2117. WILL TRANSFER PT SHORTLY.
--- NOTE | 2020-10-09 13:52 | NUR ---
PT TRANSFERRED TO 2117 AT THIS TIME VIA WHEELCHAIR WITH ALL PERSONAL ITEMS ACCOMPANIED BY HOSPITAL STAFF. TELEMETRY IN PLACE UPON TRANSFER. NO ACUTE DISTRESS NOTED. NO FURTHER ACTIONS.
--- NOTE | 2020-10-09 14:06 | NUR ---
ARRIVE TO ROOM VIA WHEELCHAIR FROM ICU. ALERT AND ORIENTED X4. AMBULATES TO BED FROM WHEELCHAIR. GAIT STEADY. DENIES ANY NEEDS AT THIS TIME. CONTINUE PLAN OF CARE AND SAFETY PRECAUTIONS.
--- NOTE | 2020-10-10 03:18 | NUR ---
PT AWAKE WITH C/O LOWER BACK PAIN AND MILD SOB. STARTED O2 @ 2L/NC AND PROVIDED TYLENOL FOR HER BACK PAIN. RIGHT GROIN INCISION C/D/I.
[2020-10-10 06:07] VITALS: BP 81/43
--- NOTE | 2020-10-10 07:20 | NUR ---
RECIEVE REPORT. ALERT AND ORIENTED X4. SITTING UP IN BED. SINUS RHYTHM ON TELEMETRY. DENIES ANY NEEDS. CONTINUE PLAN OF CARE AND SAFETY PRECAUTIONS.
[2020-10-10 08:05] VITALS: BP 94/52
[2020-10-10] MEDS ORDERED: ELIQUIS5 MG PO (10:20)
[2020-10-10] MEDS ORDERED: TOPROL XL25 MG PO (10:21)
[2020-10-10] MEDS ORDERED: BRILINTA90 MG PO (10:21)
[2020-10-10] MEDS ORDERED: LIPITOR40 MG PO (10:24)
--- NOTE | 2020-10-10 14:25 | NUR ---
ALERT AND ORIENTED X4. SITTING UP IN BED. DC RT AND LT AC IVs TIP INTACT. DISCHARGE INSTRUCTIONS GIVEN VERBALLY AND WRITTEN. DISCHARGE PAPERS SIGNED ON CHART. ESCORT TO RIDE VIA WHEELCHAIR. REMAINS FREE FROM INJURY.
== END 2020-10-10 14:29 | disposition home or self-care (01) | DRG 247 ==
LOC: D.ER 16:41 → D.CLR 16:59 → D.M2 16:59 → D.ER 18:22 → D.ICU 19:40 → D.M2 10-09 13:51
PROVIDERS: Family Medicine; Internal Medicine Cardiovascular Disease; ADMIT Internal Medicine Cardiovascular Disease; ATTEND Internal Medicine Cardiovascular Disease
PROC: B2111ZZ Fluoroscopy of Multiple Coronary Arteries using Low Osmolar Contrast (ICD-10-PCS; 2020-10-08)
PROC: B2151ZZ Fluoroscopy of Left Heart using Low Osmolar Contrast (ICD-10-PCS; 2020-10-08)
PROC: 027035Z Dilation of Coronary Artery, One Artery with Two Drug-eluting Intraluminal Devices, Percutaneous Approach (ICD-10-PCS; principal; 2020-10-08 18:00)
PROC: 4A023N7 Measurement of Cardiac Sampling and Pressure, Left Heart, Percutaneous Approach (ICD-10-PCS; 2020-10-08 18:00)
DX: I21.19 ST elevation (STEMI) myocardial infarction involving other coronary artery of inferior wall (principal); E11.9 Type 2 diabetes mellitus without complications; Z79.4 Long term (current) use of insulin; I10 Essential (primary) hypertension; Z72.0 Tobacco use; I25.10 Atherosclerotic heart disease of native coronary artery without angina pectoris; E78.5 Hyperlipidemia, unspecified; Z86.718 Personal history of other venous thrombosis and embolism; E66.01 Morbid (severe) obesity due to excess calories